=== PATIENT | male | born 1975 | race Caucasian/White ===

== ENCOUNTER 2020-08-12 10:43 | Observation (INO) | payer OTHER, SELFPAY ==
[2020-08-12] VITALS (11 sets, daily range): BP systolic 109–162; BP diastolic 69–115; PULSE 50–72; RESP 16–20; TEMP 36.3–36.5; O2SAT 96–99; BMI 31.1
--- NOTE | 2020-08-12 10:57 | ECG_ITS ---
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 Measurements Intervals [place] Rate: 57 P: 59 [place]: 173 QRS: 60 QRSD: 103 T: 53 QT: 401 QTc: 392 Interpretive Statements SINUS BRADYCARDIA No previous ECG available for comparison Electronically Signed On 08-12-2020 19:40:56 PHOTORADIO OPERATOR by Abraham Wilson M.D. [id number]
--- NOTE | 2020-08-12 10:57 | CT_ITS ---
WS: [id number] CT HEAD NONCONTRAST HISTORY: Symptoms of Acute Stroke TECHNIQUE: Contiguous axial imaging performed through the brain in 2.5 mm imaging. Bone and soft tiss ue windows. Sagittal and coronal reformats reviewed. All CT scans at [facility] use at ast one of these dose optimization techniques: automated exposure control; mA and/or kV adjustment pe r patient size (includes targeted exams where dose is matched to clinical indication); or iterative r econstruction. DLP: 878.67 mGy.cm COMPARISON: None available. No acute intracranial hemorrhage, midline shift or mass effect. No atrophy or prior infarcts or herniation. Ventricles: Normal size with no hydrocephalus. Paranasal sinuses: As visualized are clear. Mastoid air cells: Well pneumatized. Calvarium and scalp: Skull is intact with no soft tissue edema or swelling. CT/CT head wo con* [id number] IMPRESSION: Negative head CT.
--- NOTE | 2020-08-12 10:58 | ED_ITS ---
HPI - Neuro Symptoms/Deficit General: Chief Complaint: Neuro Symptoms/Deficit Stated Complaint: dizziness/slurred speech/Sent from Time Seen by Provider: 08/12/20 10:46 Source: patient Mode of arrival: ambulatory Limitations: no limitations History of Present Illness: HPI Narrative: 44-year-old male who states of the last 2 days he has had intermittent aphasia. He states he is having a really hard time finding words at times and has to really concentrate to be able to speak. He denies any other neurologic deficits. He has had no weakness. He has had mild headaches. He has no history of this in the past. Denies any fever. Associated symptoms: Deny chest pain, headache(s), nausea or vomiting Review of Systems Const: Denies: fever(s), chills, body aches or change in appetite Eyes: Denies: blurry vision or eye discomfort ENMT: Denies: throat pain or dental pain Card: Denies: chest pain Resp: Denies: dyspnea GI: Denies: abdominal pain, nausea, vomiting or diarrhea : Denies: dysuria Musc: Denies: neck pain or back pain Skin/Breast: Denies: rash Neuro: Denies: headache(s) Psych: Denies: depression Nithin/Lymph: Denies: easy bruising All/Imm: Denies: urticaria PFSH ED PFSH: Medical History Expressive aphasia Stroke-like symptoms Social History Smoking and tobacco status: current every day smoker e-cigarettes E-Cigarette Details: vaporizer device Alcohol intake: current Alcohol intake frequency: 0-2 Drinks per Day History of recent travel: No NIH stroke score NIHSS: Level Of Consciousness - 1a: 0 Level Of Consciousness Questions - 1b: Both Correct Level Of Consciousness Commands - 1c: Both Correct Best Gaze - 2: Normal Visual [place] - 3: No Visual Loss Facial Palsy - 4: Normal Motor Arm Right - 5: No Drift Motor Arm Left - 5: No Drift Motor Leg Right - 6: No Drift Motor Leg Left - 6: No Drift Limb Ataxia - 7: Absent Sensory - 8: Normal Best Language - 9: No Aphasia Dysarthia - 10: Normal Extinction And Inattention - 11: 0 Score: Total Score: 0 Physical Exam Const: COMMON NORMALS: no acute distress, patient oriented x3 and healthy appearing HENMT: COMMON NORMALS: normocephalic and atraumatic HEAD & SCALP: normocephalic and atraumatic Eye: COMMON NORMALS: Equal, round and reactive pupils present and EOMs intact bilaterally PUPIL: Yes Equal, round and reactive pupils present Neck/C-Spine: COMMON NORMALS: full ROM and supple Chest: COMMONS NORMALS: normal inspection of the chest and normal palpation of entire chest wall Resp: COMMON NORMALS: normal respiratory effort, No retractions, No use of accessory muscles and clear to auscultation bilaterally AUSCULTATION: clear to auscultation bilaterally Cardio: COMMON NORMALS: regular rate, regular rhythm and No murmurs present (Cardio) RATE: regular rate RHYTHM: regular rhythm GI: COMMON NORMALS: Normal to inspection, nondistended, normoactive bowel sounds present, Soft to palpation, non-tender and no masses PALPATION: Yes Soft to palpation Extremity: COMMON NORMALS: normal to inspection and full ROM Neuro: COMMON NORMALS: patient oriented x3, moves all extremities and no focal motor deficits Psych: COMMON NORMALS: mental status grossly normal, Normal thought process present and cooperative THOUGHT PROCESS: Normal thought process present Skin: COMMON NORMALS: no rashes or lesions noted and no wounds GENERAL SKIN EXAM: no rashes or lesions noted Course Vital Signs: Vital signs: Vital Signs Temperature 97.5 F L 08/12/20 10:50 Pulse Rate 66 08/12/20 11:52 Respiratory Rate 18 08/12/20 11:52 Blood Pressure 127/87 08/12/20 11:52 Pulse Oximetry 97 08/12/20 11:52 MDM - Neuro Symptoms/Deficit MDM Narrative: Medical decision making narrative: Patient presents here with aphasia has been going on for over a day. He is not a TPA candidate due to onset of symptoms. His CT and blood work here are normal. I did speak to the hospitalist will admit for observation. He has been stable while here. Lab Data: Labs: Lab Results 08/12/20 08/12/20 Range/Units 11:06 11:06 WBC 5.8 (4.0-10.0) 10^3/ uL RBC 4.84 (4.1-5.3) 10^6/u L Hgb 14.9 (11.7-16.6) g/dL Hct 42.6 (42.0-52.0) % MCV 88.0 (80-94) fL MCH 30.8 (28.0-34.0) pg MCHC 35.0 (30.0-36.0) g/dL RDW 11.6 L (12.1-15.1) % Plt Count 249 (130-400) 10^3/c mm MPV 9.1 (7.4-10.4) fL Neut % (Auto) 62.4 % Lymph % (Auto) 23.8 % [place] % (Auto) 9.2 % Eos % (Auto) 3.0 % Baso % (Auto) 0.9 % Neut # (Auto) 3.59 (1.8-7.7) 10^3/u L Lymph # (Auto) 1.4 (0.8-4.8) 10^3/u L [place] # (Auto) 0.5 (0.2-0.9) 10^3/u L Eos # (Auto) 0.2 (0.0-0.8) 10^3/u L Baso # (Auto) 0.1 (0.0-0.1) 10^3/u L Nucleated RBC % (a uto) 0 % Nucleated RBCs # 0.0 /100WBC Sodium 139 (136-145) mmol/L Potassium 4.1 (3.5-5.1) mmol/L Chloride 104 (98-107) mmol/L Carbon Dioxide 26 (22-29) mmol/L Anion Gap 13.1 (5-19) BUN 10 (6-20) mg/dL Creatinine 1.4 H (0.7-1.2) mg/dL GFR Calculation 55.3 L (90-130) mL/min Glucose 92 (65-115) mg/dL Calculated Osmolal ity 287 (285-295) mOsm/k g Calcium 9.4 (8.5-10.5) mg/dL Total Bilirubin 0.5 (0.15-1.2) mg/dL AST 21 (0-40) U/L ALT 24 (0-41) U/L Alkaline Phosphata se 61 (40-130) IU/L Total Protein 6.9 (6.6-8.7) g/dL Albumin 4.4 (3.5-5.2) g/dL Globulin 2.5 (1.3-4.6) g/dL Imaging Data^: CT Head: Attestation: I personally reviewed and interpreted this imaging study as follows: Radiologist's impression: [address] [place] [address] CT Scan Report Signed Patient: Howard Briseno Unit #: [id number] : 1975 Age/Sex: 44 / M ADM Date: 08/12/20 Loc: ER Room/Bed: Attending Dr: Ordering Provider/Ordering MD: Juana Tracy MD Date of Service: 08/12/20 Procedure(s): CT head wo con* [id number] Accession Number(s): [id number] Report Number: [id number] WS: [id number] CT HEAD NONCONTRAST HISTORY: Symptoms of Acute Stroke TECHNIQUE: Contiguous axial imaging performed through the brain in 2.5 mm imaging. Bone and soft tissue windows. Sagittal and coronal reformats reviewed. All CT scans at [facility] use at least one of these dose optimization techniques: automated exposure control; mA and/or kV adjustment per patient size (includes targeted exams where dose is matched to clinical indication); or iterative reconstruction. DLP: 878.67 mGy.cm COMPARISON: None available. No acute intracranial hemorrhage, midline shift or mass effect. No atrophy or prior infarcts or herniation. Ventricles: Normal size with no hydrocephalus. Paranasal sinuses: As visualized are clear. Mastoid air cells: Well pneumatized. Calvarium and scalp: Skull is intact with no soft tissue edema or swelling. CT/CT head wo con* [id number] IMPRESSION: Negative head CT. EKG Data^: EKG 1: Attestation: I personally reviewed and interpreted this EKG as follows: EKG interpretation date: 08/12/20 EKG interpretation time: 11:41 Interpretation: sinus nilesh hr [address] or t wave abnormalities qrs 103 qtc 395 Discharge Plan Discharge Patient Disposition: Admitted As Inpatient Clinical Impression: Stroke-like symptoms Condition: Stable Coding Level of Care Code ED Cryptologic Support Specialist for Chg Fwd Exam Comprehensive
[2020-08-12 11:17] LABS: Basophils # 0.1 10^3/uL (0.0-0.1); Basophils % 0.9 %; Eosinophils # 0.2 10^3/uL (0.0-0.8); Hematocrit 42.6 % (42.0-52.0); Hemoglobin 14.9 g/dL (11.7-16.6); Lymphocytes # 1.4 10^3/uL (0.8-4.8); Lymphocytes % 23.8 %; Mean Corpuscular Hemoglobin 30.8 pg (28.0-34.0); Mean Platelet Volume 9.1 fL (7.4-10.4); Monocytes # 0.5 10^3/uL (0.2-0.9); Monocytes % 9.2 %; Neutrophils # 3.59 10^3/uL (1.8-7.7); Neutrophils % 62.4 %; Nucleated Red Blood Cells % 0 %; Platelet Count 249 10^3/cmm (130-400); Red Blood Count 4.84 10^6/uL (4.1-5.3); Red Cell Distribution Width 11.6 % (12.1-15.1); White Blood Count 5.8 10^3/uL (4.0-10.0)
[2020-08-12 11:34] LABS: Alanine Aminotransferase 24 U/L (0-41); Albumin Level 4.4 g/dL (3.5-5.2); Alkaline Phosphatase 61 IU/L (40-130); Anion Gap 13.1 (5-19); Aspartate Amino Transferase 21 U/L (0-40); Blood Urea Nitrogen 10 mg/dL (6-20); Calcium 9.4 mg/dL (8.5-10.5); Carbon Dioxide 26 mmol/L (22-29); Chloride 104 mmol/L (98-107); Globulin 2.5 g/dL (1.3-4.6); Glomerular Filtration Rate 55.3 mL/min (90-130); Glucose 92 mg/dL (65-115); Osmolality Calculated 287 mOsm/kg (285-295); Potassium 4.1 mmol/L (3.5-5.1); Sodium 139 mmol/L (136-145); Total Bilirubin 0.5 mg/dL (0.15-1.2); Total Protein 6.9 g/dL (6.6-8.7)
[2020-08-12] MEDS: aspirin 81 mg Chew Tablet 324 MG PO (12:21)
[2020-08-12 12:29] LABS: INR 1.07 (0.8-1.2)
--- NOTE | 2020-08-12 12:33 | P.HP_ITS ---
Providers/Chief Complaint Admitting Physician: Caitlin Monge Primary Care Provider: TAMRA Guevara Chief Complaint: dizziness/slurred speech/Sent from History of Present Illness 44-year-old male with a past medical history of gastroesophageal reflux disease, dyslipidemia, hypertension who was seen earlier today for speech abnormality. Patient had reported difficulty with speaking and formulating sentences. Stated this has been ongoing for the past 2 days. This was associated with dizziness and headaches. He was directed to ER for evaluvation of possible stroke. Upon arrival to ER his initial NIH was noted to be 0. Laboratory workup showed a WBC of 5.8, hemoglobin of 14.9, hematocrit 42.6 and a platelet count of 249. sodium 139, potassium 4.1, chloride 104, bicarb 26, BUN 10 and creatinine of 1.4. LFTs were within normal limits. Imaging studies included CT head without contrast which did not show any evidence of acute intra-cranial abnormality. No Recent fever, chills, nausea vomiting. Patient's is at bedside and assisted with history. Stated that he has been under extreme status related to work and home situation lately. No chest pain or shortness of breath. In ER patient was started on IVF and aspirin 325 mg POx 1. Review of Systems General: Reports: 10 or more systems reviewed and unremarkable except in HPI and below Medications/Allergies Home Medications Medication Instructions Recorded Confirmed Last Taken Type atorvastatin 40 mg tablet 20 mg PO DAILY@08/12/20 08/12/20 08/11/20 History cholecalciferol (vitamin D3) 50 mcg PO DAILY@08/12/20 08/12/20 08/12/20 History [Vitamin D3] cinnamon bark [Cinnamon] 500 mg PO DAILY@08/12/20 08/12/20 08/11/20 History diphenhydramine HCl [Benadryl] 50 mg PO BEDTIME@08/12/20 08/12/20 08/11/20 History esomeprazole magnesium 20 mg 20 mg PO DAILY@08/12/20 08/12/20 08/12/20 History capsule,delayed release hydroxyzine HCl 25 mg tablet 75 mg PO Q8H PRN tab 08/12/20 08/12/20 08/12/20 Hi story ibuprofen 800 mg tablet 800 mg PO TID PRN 08/12/20 08/12/2020 History lamotrigine 150 mg tablet 150 mg PO DAILY@19 08/12/20 08/12/20 08/11/20 History lisinopril 40 mg tablet 40 mg PO DAILY@05 08/12/20 08/12/20 08/12/20 History methocarbamol 500 mg tablet 1,000 mg PO QID PRN tab 08/12/20 08/12/20 08/12/20 History metoprolol tartrate 50 mg tablet 25 mg PO Q12H 08/12/20 08/12/20 08/12/20 History valerian root 100 mg PO BEDTIME@19 08/12/20 08/12/20 08/11/20 History Allergies Allergy/AdvReac Type Severity Reaction Status Date / Time latex Allergy skin Verified 08/12/20 09:22 problems PFSH Acute PFSH: Medical History (Updated 08/12/20 @ 15:59 by Caitlin Monge MD) Anxiety Depression Elevated cholesterol Expressive aphasia Hypertension Post traumatic stress disorder (PTSD) Stroke-like symptoms Social History Smoking and tobacco status: current every day smoker e-cigarettes E-Cigarette Details: vaporizer device Alcohol intake: current Alcohol intake frequency: 0-2 Drinks per Day History of recent travel: No Vitals/I&O/Wt Last Vital Signs Temp 97.5 F L 08/12/20 10:50 Pulse 56 L 08/12/20 12:00 Resp 16 08/12/20 12:00 BP 109/87 08/12/20 12:00 Pulse Ox 98 08/12/20 12:00 Weight last 48 hrs Weight 104.326 kg Physical Exam Narrative: EXAM NARRATIVE: General : Alert, awake oriented x 3 HEENT : Grossly unremarkable CVS - NSR CHEST : non-labored respiration ABD :Soft non-tender Ext : No edema Neuro: No aphasia, CN 2-12 intact, MS 5/5, Sensation intact. Data : 08/12/20 11:06 08/12/20 11:06 A&P Assessment and plan (1) No pertinent past surgical history: Status: Acute Expressive aphasia r/o CVA - No TPA onset of symptoms > 2 days - CT head w/o contrast - > negative - S/p Asa 325 mg po x1 - Continue 81 mg PO daily - Lipitor 40 mg PO daily - Will check ECHO - Consider CTA head and neck - MRI brain w/o contrast likely in am - Check A1c, lipid panel in am - Hold anti-hypertensive allow for permissive hypertension - Neuro-checks / NIH as ordered - Cardiac telemetry - Bedside swallow prior to initiating diet - ST/PT/OT consulted - Consider Neurology consult Acute kidney injury - Creatinine 1.4 - No prior to compare - On IVF - Repeat BMP in am - Renally dose meds - Renal US if worsening Hypertension - Holding home bp meds - Permissive HTN Dyslipidemia - Lipitor 40 mg PO daily - Lipid panel in am DVT ppx - SCDs - Initial heparin after 24hr Attestations Medical Necessity Statement*: Patient is admitted to the hospital with expressive aphasia pending CVA workup anticipate less than 2 midnight stay in hospital will place in observation status. Time Spent in Patient Care: Greater than 35 minutes (>than 50% of time spent in counselling and/or direct pt care on unit) . Coding Level of Care Code Acute Dietary Services Manager for Marlin Alfonso Diagnoses No pertinent past surgical history Z78.9
--- NOTE | 2020-08-12 13:20 | PC.OT ---
OT SCREEN COMPLETED. PATIENT DEMONSTRATE WFL AROM OF B UE; MX STRENGTH 4+/5. GOOD SITTING AND STATIC STANDING BALANCE NOTED. NO VISUAL DEFICITS NOTED. NO DEFICITS IN ADL PERFORMANCE. NO FURTHER SKILLED OT REQUIRED AT THIS TIME.
--- NOTE | 2020-08-12 16:06 | CTR_ITS ---
PROCEDURE INFORMATION: Exam: CT Angiography Head With Contrast Exam date and time: 08/12/2020 8:17 PM Age: 44 years old Clinical indication: Speech disturbance and visual disturbance; Slurred speech; Additional info: Expressive aphasia TECHNIQUE: Imaging protocol: Computed tomography angiography of the head with intravenous contrast. 3D rendering (Not supervised by radiologist): MIP and/or 3D reconstructed images were created by the technologist. Radiation optimization: All CT scans at this facility use at least one of these dose optimization techniques: automated exposure control; mA and/or kV adjustment per patient size (includes targeted exams where dose is matched to clinical indication); or iterative reconstruction. Contrast material: OMNI 350; Contrast volume: 95 ml; Contrast route: INTRAVENOUS (IV); COMPARISON: CT head wo con* [id number] 08/12/2020 11:09 AM RADIATION DOSE METRICS: Total DLP (mGy-cm): 2607.06 FINDINGS: ANTERIOR CIRCULATION: Right internal carotid artery: Unremarkable. Intracranial segment is patent with no significant stenosis. No aneurysm. Right middle cerebral artery: Unremarkable. No occlusion or significant stenosis. No aneurysm. Right anterior cerebral artery: Unremarkable. No occlusion or significant stenosis. No aneurysm. Left internal carotid artery: Unremarkable. Intracranial segment is patent with no significant stenosis. No aneurysm. Left middle cerebral artery: Unremarkable. No occlusion or significant stenosis. No aneurysm. Left anterior cerebral artery: Unremarkable. No occlusion or significant stenosis. No aneurysm. POSTERIOR CIRCULATION: Right vertebral artery: Unremarkable. No occlusion or significant stenosis. No aneurysm. Left vertebral artery: Unremarkable. No occlusion or significant stenosis. No aneurysm. Basilar artery: Unremarkable. No occlusion or significant stenosis. No aneurysm. Right posterior cerebral artery: Unremarkable. No occlusion or significant stenosis. No aneurysm. Left posterior cerebral artery: Unremarkable. No occlusion or significant stenosis. No aneurysm. IMPRESSION: No significant intracranial vascular abnormality identified. PROCEDURE INFORMATION: Exam: CT Angiography Neck With Contrast Exam date and time: 08/12/2020 8:17 PM Age: 44 years old Clinical indication: Speech disturbance and visual disturbance; Slurred speech; Additional info: Expressive aphasia TECHNIQUE: Imaging protocol: Computed tomography angiography of the neck with intravenous contrast. 3D rendering (Not supervised by radiologist): MIP and/or 3D reconstructed images were created by the technologist. Radiation optimization: All CT scans at this facility use at least one of these dose optimization techniques: automated exposure control; mA and/or kV adjustment per patient size (includes targeted exams where dose is matched to clinical indication); or iterative reconstruction. Contrast material: OMNI 350; Contrast volume: 95 ml; Contrast route: INTRAVENOUS (IV); COMPARISON: CT head wo con* [id number] 08/12/2020 11:09 AM RADIATION DOSE METRICS: Total DLP (mGy-cm): 2607.06 FINDINGS: Right common carotid artery: No stenosis. No dissection or occlusion. Right internal carotid artery: No stenosis of the extracranial segment. No dissection or occlusion. Right external carotid artery: No occlusion or stenosis of the origin. Right vertebral artery: No stenosis. No dissection or occlusion. Left common carotid artery: No stenosis. No dissection or occlusion. Left internal carotid artery: No stenosis of the extracranial segment. No dissection or occlusion. Left external carotid artery: No occlusion or stenosis of the origin. Left vertebral artery: No stenosis. No dissection or occlusion. CT/CT angio headneck* [id number] IMPRESSION: No acute vascular abnormality identified in the neck. REFERENCES: NASCET CRITERIA. The degree of internal carotid artery stenosis is based on NASCET criteria. Normal is no stenosis. Mild is less than 50% stenosis. Moderate is 50-69% stenosis. Severe is 70% to 99% stenosis. Total occlusion is no detectable patent lumen. Radiation Dose CTDIVOL = (mGy): DLP = 2607.06~2607.06 (mGy-cm)
[2020-08-12 16:59] LABS: Glucose Point of Care 99 mg/dL (70-110)
[2020-08-12] MEDS: atorvastatin 40 mg Tablet PO (18:38)
[2020-08-12] MEDS: acetaminophen 500 mg Tablet PO (19:33)
[2020-08-12] MEDS: iohexol 350 mg/mL 100 mL Btl IV (20:18)
[2020-08-12 21:04] LABS: Amphetamines Screen Urine Negative (Negative); Barbiturates Screen Urine Negative (Negative); Benzodiazepines Screen Urine Negative (Negative); Cocaine Screen Urine Negative (Negative); Opiate Screen Urine Negative (Negative); PCP Screen Urine Negative (Negative); THC Screen Urine Negative (Negative)
[2020-08-13 03:00] VITALS: BP 106/69; PULSE 54; RESP 20; TEMP 36.6; O2SAT 94
[2020-08-13 05:28] LABS: Basophils % 0.6 %; Eosinophils # 0.3 10^3/uL (0.0-0.8); Eosinophils % 4.5 %; Hematocrit 43.6 % (42.0-52.0); Hemoglobin 14.9 g/dL (11.7-16.6); Lymphocytes # 1.9 10^3/uL (0.8-4.8); Lymphocytes % 30.4 %; Mean Corpuscular HGB Conc 34.2 g/dL (30.0-36.0); Mean Corpuscular Hemoglobin 30.2 pg (28.0-34.0); Mean Corpuscular Volume 88.3 fL (80-94); Mean Platelet Volume 9.2 fL (7.4-10.4); Monocytes # 0.5 10^3/uL (0.2-0.9); Monocytes % 7.3 %; Neutrophils # 3.51 10^3/uL (1.8-7.7); Neutrophils % 56.9 %; Nucleated Red Blood Cells % 0 %; Platelet Count 246 10^3/cmm (130-400); Red Blood Count 4.94 10^6/uL (4.1-5.3); Red Cell Distribution Width 11.4 % (12.1-15.1); White Blood Count 6.2 10^3/uL (4.0-10.0)
--- NOTE | 2020-08-13 05:28 | PC.NURSE ---
SHIFT SUMMARY Has rested well. No distress or c/o other than mild headache for which he received Tylenol. Neurochecks without deficits. Did have CTA done in the evening.
[2020-08-13 05:33] VITALS: PULSE 52
[2020-08-13 05:55] LABS: Alanine Aminotransferase 19 U/L (0-41); Alkaline Phosphatase 54 IU/L (40-130); Anion Gap 11.7 (5-19); Aspartate Amino Transferase 15 U/L (0-40); Blood Urea Nitrogen 10 mg/dL (6-20); Calcium 9.2 mg/dL (8.5-10.5); Carbon Dioxide 25 mmol/L (22-29); Chloride 106 mmol/L (98-107); Chol HDL Ratio 4.45 mg/dL (1.0-5.00); Cholesterol 129 mg/dL (0-200); Glomerular Filtration Rate 60.2 mL/min (90-130); Glucose 83 mg/dL (65-115); HDL Cholesterol 29 mg/dL (60-100); LDL Cholesterol Calculated 55 mg/dL (50-129); Osmolality Calculated 286 mOsm/kg (285-295); Potassium 3.7 mmol/L (3.5-5.1); Sodium 139 mmol/L (136-145); Total Bilirubin 0.6 mg/dL (0.15-1.2); Triglycerides 223 mg/dL (0-150)
--- NOTE | 2020-08-13 06:00 | USCV_ITS ---
Howard Briseno Age: 44 Gender: M : 1975 Exam Date: 08/13/2020 07:51 Ordering Phys: Caitlin Monge MD Technologist: Rosa Alas Exam Location: [facility] Indication: TIA BP: 106 / 69 HR: 55 Rhythm: Sinus Technical Quality: MEASUREMENTS (Male / Female) Normal Values 2D ECHO LV Diastolic Diameter PLAX 3.8 cm 4.2 - 5.9 / 3.9 - 5.3 cm LV Systolic Diameter PLAX 2.5 cm LV Chamber Size 3.2 cm IVS Diastolic Thickness 1.4 cm 0.6 - 1.0 / 0.6 - 0.9 cm IVS Systolic Thickness 1.8 cm LVPW Diastolic Thickness 2.0 cm 0.6 - 1.0 / 0.6 - 0.9 cm LVPW Systolic Thickness 3.6 cm RV Chamber Size 3.9 cm LVOT Diameter 2.0 cm LV Ejection Fraction 2D Teich 63.1 % LV Ejection Fraction MOD 2C 45.6 % LV Ejection Fraction 2C AL 46.2 % LA Diameter 3.1 cm LA Width 3.1 cm LA Height 5.2 cm RA Width 3.4 cm RA Height 4.0 cm Aorta at Sinotubular Diameter 3.0 cm M-MODE LV Diastolic Diameter MM 5.9 cm 4.2 - 5.9 / 3.9 - 5.3 cm LV Systolic Diameter MM 3.6 cm LV Ejection Fraction MM Teich 69.9 % IVS Diastolic Thickness MM 0.9 cm 0.6 - 1.0 / 0.6 - 0.9 cm IVS Systolic Thickness MM 1.3 cm LVPW Diastolic Thickness MM 1.7 cm 0.6 - 1.0 / 0.6 - 0.9 cm LVPW Systolic Thickness MM 1.7 cm Aortic Annulus Diameter 3.7 cm LA Ao Ratio MM 0.9 MV E Point Septal Separation 0.7 cm DOPPLER AV Peak Velocity 120.0 cm/s LVOT Peak Velocity 90.0 cm/s AV Area Cont Eq vti 2.1 cm squared AV Area Cont Eq pk 2.4 cm squared MV Area PHT 3.3 cm squared Mitral E to A Ratio 1.5 MV E' Velocity 42.0 cm/s Mitral E to MV E' Ratio 4.9 Mitral E to LV E' Lateral Ratio 4.7 Mitral E to LV E' Septal Ratio 5.3 TR Peak Velocity 216.5 cm/s TR Peak Gradient 18.7 mmHg TV Peak E Velocity 53.0 cm/s Right Atrial Pressure 3.0 mmHg Pulmonary Artery Systolic Pressu 21.7 mmHg PV Peak Velocity 68.0 cm/s RV Acceleration Time 0.1 s RV Ejection Time 0.4 s RV AcT/ET 0.3 FINDINGS Left Ventricle Normal left ventricular size and systolic function, EF 57 %. Mild left ventricular hypertrophy. No regional wall motion abnormalities. Right Ventricle The right ventricle is normal in size and function. Right Atrium The right atrium is normal in size. Left Atrium The left atrium is normal in size. Mitral Valve No gross abnormalities noted Aortic Valve No gross abnormalities noted Tricuspid Valve Trace tricuspid valve regurgitation. Pulmonic Valve No gross abnormalities noted Pericardium Normal pericardium without effusion. Aorta Normal ascending aorta dimension. CONCLUSIONS Normal left ventricular size and systolic function, EF 57 %. Mild left ventricular hypertrophy. No regional wall motion abnormalities. Trace tricuspid valve regurgitation. There is no pericardial effusion. There are no intracardiac masses. There are no prior echocardiogram studies to compare. Dr Abraham Wilson MD FAC (Electronically Signed) Final Date: 13 August 2020 20:12 S
[2020-08-13 06:01] LABS: Estmated Average Glucose 97
[2020-08-13 07:30] VITALS: BP 113/66; PULSE 62; RESP 18; TEMP 36.5; O2SAT 95
[2020-08-13] MEDS: aspirin 81 mg EC Tablet PO (08:36)
--- NOTE | 2020-08-13 08:52 | MR_ITS ---
WS: [id number] MRI BRAIN WITH AND WITHOUT CONTRAST HISTORY: Expressive aphasia COMPARISON: CT head 08/12/2020 TECHNIQUE: Multiplanar imaging performed through the brain with Prohance 17 ml's IV. No acute infarcts are seen. [place]-white matter differentiation is well preserved. No susceptibility artifacts or prior lacunar infarcts. Ventricles and extra-axial spaces are normal. Clivus and pituitary gland are normal. Visualized posterior fossa and brainstem are also normal. Postcontrast images are negative for masses or vascular malformations. Dural venous sinuses are normal. Paranasal sinuses: Small amount of fluid in the maxillary sinuses bilaterally. Mastoid air cells: Normal. Calvarium and scalp: Normal. MR/MR head wo/w con [id number] IMPRESSION: 1. Normal MRI brain with contrast. 2. Mild bilateral maxillary sinusitis.
[2020-08-13] MEDS: LORazepam 2 mg/mL INJ 1 mL 0.5 MG IVP (10:03)
[2020-08-13 11:00] VITALS: BP 120/76; PULSE 73; RESP 18; TEMP 36.6; O2SAT 94
--- NOTE | 2020-08-13 11:57 | PC.NURSE ---
off unit Pt went to [facility] for MRI.
--- NOTE | 2020-08-13 15:17 | ECG_ITS ---
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 Measurements Intervals [place] Rate: 65 P: 32 [place]: 148 QRS: 23 QRSD: 106 T: 29 QT: 381 QTc: 399 Interpretive Statements SINUS RHYTHM Compared to ECG 08/12/2020 11:41:19 Sinus bradycardia no longer present Electronically Signed On 08-13-2020 21:21:01 INFORMATION TECHNOLOGY TEACHER by Lisa Call M.D. [id number]
--- NOTE | 2020-08-13 15:17 | PM.DCS ---
Discharge Providers Date of Admission: 08/12/20 12:02 Date of Discharge: August 13, 2020 Attending Provider at Admission: Caitlin Monge Attending Provider at Discharge: Caitlin Monge Primary Care Provider: TAMRA Guevara Diagnoses at Discharge Discharge Diagnosis (1) No pertinent past surgical history: Status: Resolved Reason for Visit Reason for Visit: dizziness/slurred speech/Sent from [facility] Course Hospital Course 44-year-old male with a past medical history of gastroesophageal reflux disease, dyslipidemia, hypertension who was seen earlier today for speech abnormality. Patient had reported difficulty with speaking and formulating sentences. Stated this has been ongoing for the past 2 days. This was associated with dizziness and headaches. He was directed to ER for evaluvation of possible stroke. Upon arrival to ER his initial NIH was noted to be 0. Laboratory workup showed a WBC of 5.8, hemoglobin of 14.9, hematocrit 42.6 and a platelet count of 249. sodium 139, potassium 4.1, chloride 104, bicarb 26, BUN 10 and creatinine of 1.4. LFTs were within normal limits. Imaging studies included CT head without contrast which did not show any evidence of acute intra-cranial abnormality. No Recent fever, chills, nausea vomiting. Patient's is at bedside and assisted with history. Stated that he has been under extreme status related to work and home situation lately. No chest pain or shortness of breath.In ER patient was started on IVF and aspirin 325 mg POx 1 And admitted for stroke workup. Upon admission a CT angio of head and neck was performed which did not show any flow-limiting stenosis. Further had a MRI brain with without contrast which was also negative. Echocardiogram was performed which showed an ejection fraction of 57% without any significant valvular or structural heart disease. It was suspected that the patient likely had the symptoms due to over use of hydroxyzine and Benadryl. He was advised to hold these medications at the time of discharge. Also consult him on returning hospital if any worsening or recurrence of symptoms. Advised to follow-up with primary care physician shortly after discharge. Addition was counseled on stress management. Physical Exam Narrative: EXAM NARRATIVE: General : Alert, awake oriented x 3 HEENT : Grossly unremarkable CVS - NSR CHEST : non-labored respiration ABD :Soft non-tender Ext : No edema Neuro: No aphasia, CN 2-12 intact, MS 5/5, Sensation intact. Discharge Data Data Completed and Pending: Completed Studies During Hospitalization Category Date Time Status CT angio headneck * 13591/71849 Rout ine Cat Scan 08/12/20 16:[address] head wo con* 7 0450 Stat Cat Scan 08/12/20 10:57 Completed MR head wo/w con [id number] Routine MRI 08/13/20 08:52 Completed Pending at discharge Category Date Time Status CV echo complete* [id number] Routine Ultrasound 08/13/20 06:00 Taken Labs from last 24 hours 08/13/20 08/13/20 08/13/20 04:48 04:48 04:48 WBC 6.2 RBC 4.94 Hgb 14.9 Hct 43.6 MCV 88.3 MCH 30.2 MCHC 34.2 RDW 11.4 L Plt Count 246 MPV 9.2 Neut % (Auto) 56.9 Lymph % (Auto) 30.4 [place] % (Auto) 7.3 Eos % (Auto) 4.5 Baso % (Auto) 0.6 Neut # (Auto) 3.51 Lymph # (Auto) 1.9 [place] # (Auto) 0.5 Eos # (Auto) 0.3 Baso # (Auto) 0.0 Nucleated RBC % (a uto) 0 Nucleated RBCs # 0.0 Sodium 139 Potassium 3.7 Chloride 106 Carbon Dioxide 25 Anion Gap 11.7 BUN 10 Creatinine 1.3 H GFR Calculation 60.2 L Glucose 83 POC Glucose Estimat Average Gl ucose Hemoglobin A1c Calculated Osmolal ity 286 Calcium 9.2 Total Bilirubin 0.6 AST 15 ALT 19 Alkaline Phosphata se 54 Total Protein 6.0 L Albumin 4.0 Globulin 2.0 Triglycerides 223 H Cholesterol 129 LDL Cholesterol, C alc 55 HDL Cholesterol 29 L LDL/HDL Ratio 1.90 Cholesterol/HDL Ra noman 4.45 Urine Opiates Scre en Ur Barbiturates Sc reen Ur Phencyclidine S crn Ur Amphetamines Sc reen U Benzodiazepines Scrn Urine Cocaine Scre en U Marijuana (THC) Screen 08/13/20 08/12/20 08/12/20 04:48 20:25 16:56 WBC RBC Hgb Hct MCV MCH MCHC RDW Plt Count MPV Neut % (Auto) Lymph % (Auto) [place] % (Auto) Eos % (Auto) Baso % (Auto) Neut # (Auto) Lymph # (Auto) [place] # (Auto) Eos # (Auto) Baso # (Auto) Nucleated RBC % (a uto) Nucleated RBCs # Sodium Potassium Chloride Carbon Dioxide Anion Gap BUN Creatinine GFR Calculation Glucose POC Glucose 99 Estimat Average Gl ucose 97 Hemoglobin A1c 5.0 Calculated Osmolal ity Calcium Total Bilirubin AST ALT Alkaline Phosphata se Total Protein Albumin Globulin Triglycerides Cholesterol LDL Cholesterol, C alc HDL Cholesterol LDL/HDL Ratio Cholesterol/HDL Ra noman Urine Opiates Scre en Negative Ur Barbiturates Sc reen Negative Ur Phencyclidine S crn Negative Ur Amphetamines Sc reen Negative U Benzodiazepines Scrn Negative Urine Cocaine Scre en Negative U Marijuana (THC) Screen Negative Vitals: Last Vital Signs Temp 97.9 F 08/13/20 11:00 Pulse 73 08/13/20 11:00 Resp 18 08/13/20 11:00 BP 120/76 08/13/20 11:00 Pulse Ox 94 08/13/20 11:00 Discharge Plan Discharge Patient Disposition: Home Condition: Stable Prescriptions: Continued lisinopril 40 mg tablet 40 mg PO DAILY@05 RF: 0 metoprolol tartrate 50 mg tablet 25 mg PO Q12H RF: 0 lamotrigine 150 mg tablet 150 mg PO DAILY@19 RF: 0 esomeprazole magnesium 20 mg capsule,delayed release(DR/EC) 20 mg PO DAILY@05 RF: 0 atorvastatin 40 mg tablet 20 mg PO DAILY@19 RF: 0 methocarbamol 500 mg tablet 1,000 mg PO QID PRN (Reason: Pain) RF: 0 valerian root 100 mg Capsule 100 mg PO BEDTIME@19 RF: 0 Cinnamon 500 mg Capsule 500 mg PO DAILY@19 RF: 0 Vitamin D3 50 mcg (2,000 unit) Capsule 50 mcg PO DAILY@05 RF: 0 Discontinued hydroxyzine HCl 25 mg tablet 75 mg PO Q8H PRN (Reason: Anxiety) RF: 0 ibuprofen 800 mg tablet 800 mg PO TID PRN (Reason: Pain) RF: 0 diphenhydramine HCl [Benadryl] 50 mg Capsule 50 mg PO BEDTIME@19 RF: 0 Discharge Orders: Discharge Order (Routine); Ordered 08/13/20 Ordered By: Caitlin Monge Referrals: Magdalene García MD [Physician] - 08/19/20 12:30 pm Franky Mcghee PA [Primary Care Provider] - 4-7 days (Chacorta Mcghee is available for walk in appointments 7 days a week 9-1230 and 2-5 at [facility]) Discharge Diet: Cardiac Discharge Activity: Resume usual activity Patient Instructions: Ischemic Stroke (DC), Self Care Measures After a Stroke (DC), Stroke Stoplight Activity Restrictions/Additional Instructions: Avoid sedative, Discontinue hydroxyzine and benadryl for sleep. Consider melatonin OTC. Return to hospital if any recurrance or worsening symptoms. Discharge Attestations Time Spent in Discharge Care*: greater than 30 min Specific Discharge Activities: educating patient, educating and/or supporting family/caregiver, discussing with machine adjuster leader case trim/social workers/dc planners, documenting/other paperwork and evaluating patient/reviewing data Status at Discharge: Cognitive status at discharge: cognitively intact, Behavioral status at discharge: cooperative, Functional status at discharge: independent ambulation Overall status at discharge: patient is back to baseline Quality Metrics Clinical Quality Measures During this hospital stay, did patient experience: None Coding Level of Care Code Acute Cartography Supervisor for Chg Fwd Diagnoses No pertinent past surgical history Z78.9
[2020-08-13 15:39] VITALS: BP 127/83; PULSE 70; RESP 18; TEMP 37; O2SAT 96
[2020-08-13 19:30] VITALS: BP 127/83; PULSE 70; RESP 18; TEMP 37; O2SAT 96
--- NOTE | 2020-08-14 13:25 | PC.RESP ---
Smoking Cessation information sent to patient.
== END 2020-08-13 17:11 | disposition home or self-care (01) ==
LOC: ER 12:03 → MEDSURG 12:31
PROVIDERS: Admitting Provider Hospitalist; Emergency Provider Emergency Medicine; PCP Emergency Medicine; Visit Provider Hospitalist
DX: R47.9 Unspecified speech disturbances (principal); R51.9 Headache, unspecified; R42 Dizziness and giddiness; K21.9 Gastro-esophageal reflux disease without esophagitis; E78.5 Hyperlipidemia, unspecified; I10 Essential (primary) hypertension; F41.9 Anxiety disorder, unspecified; F32.9 Major depressive disorder, single episode, unspecified; F17.290 Nicotine dependence, other tobacco product, uncomplicated; N17.9 Acute kidney failure, unspecified
CPT/HCPCS: 12345; 36415; 36416; 70450; 70496; 70498; 70553; 80053; 80061; 80306; 82962; 83036; 85025; 85610; 92507; 92523; 92526; 92610; 93005; 93306; 96374; 96375; 97161; 99282; 99285; A9579; G0378; J2060; Q9967

== ENCOUNTER → 2020-09-07 09:51 | Outpatient (BNVA) | payer OTHER, SELFPAY | PROVIDERS: PCP Emergency Medicine; Visit Provider Family Medicine | DX: I10 Essential (primary) hypertension (principal); K21.9 Gastro-esophageal reflux disease without esophagitis; F41.9 Anxiety disorder, unspecified; N17.9 Acute kidney failure, unspecified; F33.0 Major depressive disorder, recurrent, mild; M54.5 Low back pain; G89.29 Other chronic pain | CPT/HCPCS: 80048 ==

== ENCOUNTER → 2020-09-17 08:05 | Outpatient (BNVA) | payer OTHER, SELFPAY | PROVIDERS: PCP Family Medicine; Visit Provider Counselor Professional | DX: F43.12 Post-traumatic stress disorder, chronic (principal); F41.1 Generalized anxiety disorder | CPT/HCPCS: 90834 ==

== ENCOUNTER → 2020-09-25 09:04 | Outpatient (BNVA) | payer OTHER, SELFPAY | PROVIDERS: PCP Family Medicine; Visit Provider Counselor Professional | DX: F43.12 Post-traumatic stress disorder, chronic (principal); F41.1 Generalized anxiety disorder | CPT/HCPCS: 90832 ==

== ENCOUNTER → 2020-10-13 15:08 | Outpatient (BNVA) | payer OTHER, SELFPAY | PROVIDERS: PCP Family Medicine; Visit Provider Counselor Professional | DX: F43.12 Post-traumatic stress disorder, chronic (principal); F41.1 Generalized anxiety disorder | CPT/HCPCS: 90832 ==

== ENCOUNTER → 2020-11-11 08:09 | Outpatient (BNVA) | payer OTHER, SELFPAY | PROVIDERS: PCP Family Medicine; Visit Provider Counselor Professional | DX: F43.12 Post-traumatic stress disorder, chronic (principal); F41.1 Generalized anxiety disorder | CPT/HCPCS: 90834 ==

== ENCOUNTER → 2020-11-25 09:11 | Outpatient (BNVA) | payer OTHER, SELFPAY | PROVIDERS: PCP Family Medicine; Visit Provider Family Medicine | DX: I10 Essential (primary) hypertension (principal); K21.9 Gastro-esophageal reflux disease without esophagitis; M25.50 Pain in unspecified joint; N17.9 Acute kidney failure, unspecified | CPT/HCPCS: 80053; 80061; 85651; 86038; 86140 ==

== ENCOUNTER → 2020-12-09 08:10 | Outpatient (BNVA) | payer OTHER, SELFPAY | PROVIDERS: PCP Family Medicine; Visit Provider Counselor Professional | DX: F43.12 Post-traumatic stress disorder, chronic (principal); F41.1 Generalized anxiety disorder | CPT/HCPCS: 90834 ==

== ENCOUNTER → 2021-01-06 08:05 | Outpatient (BNVA) | payer OTHER, SELFPAY | PROVIDERS: PCP Family Medicine; Visit Provider Counselor Professional | DX: F43.12 Post-traumatic stress disorder, chronic (principal); F41.1 Generalized anxiety disorder | CPT/HCPCS: 90834 ==

== ENCOUNTER 2021-01-20 10:29 | Outpatient (CLI) | payer OTHER, SELFPAY ==
--- NOTE | 2021-01-20 10:44 | XR_ITS ---
WS: [id number] Thoracic spine, 3 views, 01/20/2021 Clinical Data: Z79.899 - Other residential (current) drug therapy Comparison: None. Findings: No compression fractures are seen. The disc heights are normal. The paravertebral regions are unremarkable. XR/XR thoracic spine 3V* [id number] Impression: Negative thoracic spine.
--- NOTE | 2021-01-20 10:44 | XR_ITS ---
WS: [id number] Left knee, 3 views, 01/20/2021 Clinical Data: Z79.899 - Other custodial (current) drug therapy Comparison: None. Findings: No fractures or dislocations are seen. The joint spaces are normal. The patella is intact. The soft t issues are unremarkable. XR/XR knee LT 3V* 18836 Impression: Negative left knee. Kellgren-Sebas Classification: grade 0 (none): definite absence of x-ray sierra nges of osteoarthritis
--- NOTE | 2021-01-20 10:44 | XR_ITS ---
WS: [id number] Right hand, 3 views, 01/20/2021 Clinical Data: Z79.899 - Other long-term (current) drug therapy Comparison: None. Findings: No fractures or dislocations are seen. The soft tissues are unremarkable. The joint space s are normal No periarticular demineralization or calcifications are seen. XR/XR hand RT min 3V* [id number] Impression: Negative right hand.
--- NOTE | 2021-01-20 10:44 | XR_ITS ---
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 Findings: No compression fractures or subluxation is seen. There is degenerative disc narrowing at L5-S1. Minim al anterior osteoarthritic spurring is seen at L1-L5. The transverse processes and SI joints are norm al. XR/XR lumbar spine 2-3V* 49091 Impression: 1. Degenerative disc narrowing at L5-S1. 2. Mild osteoarthritis of vertebral bodies L1-L5.
--- NOTE | 2021-01-20 10:44 | XR_ITS ---
WS: [id number] Pelvis, AP view, 01/20/2021 Clinical Data: Z79.899 - Other [facility] (current) drug therapy Comparison: None. Findings: No fractures or dislocations are seen. The SI joints and pubic symphysis are intact. The soft tissues are not remarkable. The hips are normal. XR/XR pelvis 1-2V* 50961 Impression: Negative AP pelvis.
--- NOTE | 2021-01-20 10:44 | XR_ITS ---
WS: [id number] Right knee, 3 views, 01/20/2021 Clinical Data: Z79.899 - Other [facility] (current[facility] drug therapy Comparison: None. Findings: No fractures or dislocations are seen. The joint spaces are normal. The patella is intact. The soft t issues are unremarkable. XR/XR knee RT 3V* 93596 Impression: Negative right knee. Kellgren-Sebas Classification: grade 0 (none): definite absence of x-ray sierra nges of osteoarthritis
--- NOTE | 2021-01-20 10:44 | XR_ITS ---
WS: [id number] Left hand, 3 views, 01/20/2021 Clinical Data: Z79.899 - Other correction (current) drug therapy Comparison: None. Findings: No fractures or dislocations are seen. The soft tissues are unremarkable. The joint spaces are normal No periarticular demineralization or calcifications are seen. XR/XR hand LT min 3V* 26613 Impression: Negative left hand.
[2021-01-20 12:37] LABS: Erythrocyte Sedimentation Rate 10 mm/hr (0-10)
[2021-01-20 12:42] LABS: 25 Hydroxy Vitamin D 52 ng/mL (30-100)
[2021-01-20 13:12] LABS: Rheumatoid Factor < 10.0 IU/mL (0-14)
[2021-01-20 14:42] LABS: Hepatitis B Core AB, Total Non-Reactive (Nonreactive); Hepatitis B Surface Antigen Non-Reactive (Nonreactive); Hepatitis C Virus Antibody Non-Reactive (Nonreactive)
[2021-01-21 12:13] LABS: Cyclic Citrullinated Peptide <16 UNITS
[2021-01-21 14:23] LABS: Anti-Nuclear Antibody Screen NEGATIVE (NEGATIVE)
[2021-01-23 13:28] LABS: Quantiferon Mitogen 8.72 IU/mL; Quantiferon Nil 0.01 IU/mL; Quantiferon TB Gold NEGATIVE (NEGATIVE)
[2021-01-25 22:58] LABS: HLA-B27 NEGATIVE (NEGATIVE)
== END 2021-01-20 10:30 | disposition home or self-care (01) ==
PROVIDERS: PCP Family Medicine; Visit Provider Internal Medicine Rheumatology
DX: M19.90 Unspecified osteoarthritis, unspecified site (principal); M45.9 Ankylosing spondylitis of unspecified sites in spine; Z79.899 Other long term (current) drug therapy; Z11.59 Encounter for screening for other viral diseases; Z11.1 Encounter for screening for respiratory tuberculosis; F17.290 Nicotine dependence, other tobacco product, uncomplicated
CPT/HCPCS: 36415; 72072; 72100; 72170; 73130; 73562; 82306; 85651; 86038; 86140; 86431; 86480; 86704; 86803; 86812; 87340; 99204

== ENCOUNTER → 2021-02-12 10:41 | Outpatient (BNVA) | payer OTHER, SELFPAY | PROVIDERS: PCP Family Medicine; Visit Provider Nurse Practitioner Family | DX: R68.89 Other general symptoms and signs (principal) | CPT/HCPCS: 87400 ==

== ENCOUNTER → 2021-02-23 13:02 | Outpatient (BNVA) | payer OTHER, SELFPAY | PROVIDERS: PCP Family Medicine; Visit Provider Internal Medicine Rheumatology | DX: M25.50 Pain in unspecified joint (principal); M25.569 Pain in unspecified knee; M54.5 Low back pain; G89.29 Other chronic pain; F17.290 Nicotine dependence, other tobacco product, uncomplicated | CPT/HCPCS: 99214 ==

== ENCOUNTER → 2021-03-18 08:56 | Outpatient (BNVA) | payer OTHER, SELFPAY | PROVIDERS: PCP Family Medicine; Visit Provider Counselor Professional | DX: F43.12 Post-traumatic stress disorder, chronic (principal); F41.1 Generalized anxiety disorder | CPT/HCPCS: 90834 ==

== ENCOUNTER → 2021-04-20 08:50 | Outpatient (BNVA) | payer OTHER, SELFPAY | PROVIDERS: PCP Family Medicine; Visit Provider Counselor Professional | DX: F43.12 Post-traumatic stress disorder, chronic (principal); F41.1 Generalized anxiety disorder | CPT/HCPCS: 90834 ==

== ENCOUNTER → 2021-05-13 08:59 | Outpatient (BNVA) | payer OTHER, SELFPAY | PROVIDERS: PCP Family Medicine; Visit Provider Family Medicine | DX: K21.9 Gastro-esophageal reflux disease without esophagitis (principal); R10.33 Periumbilical pain; K29.00 Acute gastritis without bleeding | CPT/HCPCS: 80053; 80061; 83690; 85025 ==

== ENCOUNTER → 2021-05-23 18:00 | Outpatient (BNVA) | payer OTHER, SELFPAY | PROVIDERS: PCP Family Medicine; Visit Provider Nurse Practitioner Family | DX: K85.90 Acute pancreatitis without necrosis or infection, unspecified (principal) | CPT/HCPCS: 80048; 82150; 83690 ==

== ENCOUNTER → 2021-06-30 08:47 | Outpatient (BNVA) | payer OTHER, SELFPAY | PROVIDERS: PCP Family Medicine; Referring Provider Internal Medicine; Visit Provider Internal Medicine | DX: Z01.812 Encounter for preprocedural laboratory examination (principal); Z20.822 Contact with and (suspected) exposure to COVID-19 | CPT/HCPCS: 87635 ==

== ENCOUNTER 2021-07-05 07:34 | Day surgery (SDC) | payer OTHER, SELFPAY ==
--- NOTE | 2021-07-05 07:41 | ANES.PREANE2 ---
Pre-Anesthetic Assessment Pre-Anesthetic Assessment: Height/Weight: Height 1.83 m Preop Diagnosis: pancreatitis Proposed Procedure: Operation Date: 07/05/21 09:15 Proposed Procedures p EGD 09640 r10.84(Not Applicable) - Siddharth Fish MD Familial anesthetic complications: None Was Beta Blanco taken within 24 hours: Yes Was Clonidine taken within 24 hours: N/A Last intake: > 8 hrs Social: Social History: No alcohol and No tobacco Comment: Vapes Exam: Pre-Anes Outpt Exam: alert, oriented x 3, clear to auscultation bilaterally and regular rate & rhythm Airway: MP: 1 Dentition: Full Pulmonary: Pulmonary: Asthma CV/HEM: CV/HEM: HTN GI: GI: GERD Musc/skel: Comments: inflammatory arthritis on prednisone Anesthetic Plan: ASA status: 3 Anesthesia: MAC Risk of > 500 ml blood loss (7ml/kg in children): No PFSH Anesthesia PFSH: Medical History Anxiety Chronic steroid use Depression Elevated cholesterol Expressive aphasia GERD (gastroesophageal reflux disease) High risk medication use Hypertension Immunization counseling Inflammatory arthritis Joint pain MDD (major depressive disorder) Muscle pain Post traumatic stress disorder (PTSD) Problems related to lack of adequate sleep Psychiatric care PTSD (post-traumatic stress disorder) Stroke-like symptoms Surgical History H/O hand surgery H/O knee surgery Family History Other CAD (coronary artery disease) Cancer Chronic kidney disease (CKD) Diabetes Hypertension Rheumatoid arthritis Stroke Denies family history of Lupus Hyperlipidemia Lung disease Social History Smoking and tobacco status: former smoker Quit status (tobacco): has quit using tobacco Year quit tobacco: 07/2020 Second hand smoke exposure: Yes Alcohol intake: current Alcohol intake frequency: 0-2 Drinks per Day History of recent travel: No Current gender identity: Male Data Anesthesia Cardiac Studies: No Data to Display
--- NOTE | 2021-07-05 07:55 | P.HP_ITS ---
Same Day Surgery H&P Indication for Procedure/HPI DATE OF PROCEDURE: July 05, 2021 CHIEF COMPLAINT/INDICATIONFOR SURGICAL PROCEDURE: Epigastric pain PREOP DIAGNOSIS: Epigastric pain. PLANNED PROCEDRUE: Operation Date: 07/05/21 09:15 Proposed Procedures p EGD 72169 r10.84(Not Applicable) - Siddharth Fish MD Medications/Allergies* Home Medications Medication Instructions Recorded Confirmed Type cholecalciferol (vitamin D3) 50 mcg PO DAILY@05 08/12/20 07/02/21 History [Vitamin D3] methocarbamol 500 mg tablet 1,000 mg PO QID PRN tab 08/12/20 07/02/21 History Allergies/Adverse Reactions Allergy/AdvReac Type Severity Reaction Status Date / Time latex Allergy skin Verified 06/16/21 08:59 problems Pertinent History/Comorbid Conditions* Medical History (Updated 06/16/21 @ 09:37 by Siddharth Fish MD) Anxiety Chronic steroid use Depression Elevated cholesterol Expressive aphasia GERD (gastroesophageal reflux disease) High risk medication use Hypertension Immunization counseling Inflammatory arthritis Joint pain MDD (major depressive disorder) Muscle pain Post traumatic stress disorder (PTSD) Problems related to lack of adequate sleep Psychiatric care PTSD (post-traumatic stress disorder) Stroke-like symptoms Surgical History (Updated 08/18/20 @ 00:00 by ) H/O hand surgery H/O knee surgery Family History (Updated 01/20/21 @ 09:22 by Emerald Wilson LPN) Rheumatoid arthritis Diabetes CAD (coronary artery disease) Chronic kidney disease (CKD) Cancer Hypertension Stroke Denies family history of Lupus Hyperlipidemia Lung disease Social History Smoking and tobacco status: former smoker Quit status (tobacco): has quit using tobacco Year quit tobacco: 07/2020 Second hand smoke exposure: Yes Alcohol intake: current Alcohol intake frequency: 0-2 Drinks per Day History of recent travel: No Current gender identity: Male Pertinent Exam Findings alert, oriented x 3, clear to auscultation bilaterally, regular rate & rhythm, operative site marked and procedure specific exam findings Recommendations Surgery/Procedure today Coding Level of Care Code Acute 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
[2021-07-05 08:20] VITALS: BP 121/81; PULSE 55; RESP 18; TEMP 36.3; O2SAT 97
[2021-07-05 08:22] VITALS: BMI 29.8
[2021-07-05] MEDS: sodium chloride 0.9% 1,000 ML 30 ML IV (08:29)
[2021-07-05 09:10] VITALS: BP 108/90; PULSE 78; RESP 16; TEMP 36.5; O2SAT 96
[2021-07-05 09:26] VITALS: BP 102/62; PULSE 64; RESP 16; O2SAT 98
--- NOTE | 2021-07-05 09:41 | PC.NURSE ---
Pt given d/c instructions with referral/consult appointment to Dr. Mcghee. Dr. Mcghee's office contacted and appointment made. Report and H&P faxed to [facility], as requested.
--- NOTE | 2021-07-05 18:52 | ANE.PACU2 ---
Inpatient post-anesthesia follow up: Airway intact: Yes Vital signs: Temperature 97.7 F Pulse Rate 64 Respiratory Rate 16 Blood Pressure 102/62 Pulse Oximetry 98 Oxygen Delivery Me thod Room Air Oxygen Flow Rate Fraction of Inspir ed Oxygen Hydration adequate: Yes Nausea and vomiting: No Pain level: 1 Mental status: Baseline
== END 2021-07-05 09:50 | disposition home or self-care (01) ==
PROVIDERS: PCP Family Medicine; Visit Provider Internal Medicine
PROC: 0DJ08ZZ Inspection of Upper Intestinal Tract, Via Natural or Artificial Opening Endoscopic (ICD-10-PCS; CPT 43235; principal; 2021-07-05 09:15)
DX: R10.13 Epigastric pain (principal); K21.9 Gastro-esophageal reflux disease without esophagitis; I10 Essential (primary) hypertension; F43.10 Post-traumatic stress disorder, unspecified; Z87.891 Personal history of nicotine dependence; Z91.040 Latex allergy status; Z79.899 Other long term (current) drug therapy
CPT/HCPCS: 43235; 96360; J2704; J7030

== ENCOUNTER → 2021-07-13 10:00 | Outpatient (BNVA) | payer OTHER, SELFPAY | PROVIDERS: PCP Family Medicine; Visit Provider Surgery | DX: Z20.822 Contact with and (suspected) exposure to COVID-19 (principal); K82.9 Disease of gallbladder, unspecified; R10.11 Right upper quadrant pain | CPT/HCPCS: 87635 ==

== ENCOUNTER 2021-07-15 09:54 | Day surgery (SDC) | payer OTHER, SELFPAY ==
[2021-07-14 10:07] VITALS: BMI 29.1
[2021-07-15] VITALS (10 sets, daily range): BP systolic 106–137; BP diastolic 67–92; PULSE 63–91; RESP 16–25; TEMP 36.4–37.1; O2SAT 94–99
[2021-07-15] MEDS: sodium chloride 0.9% 1,000 ML 30 ML IV (10:22)
--- NOTE | 2021-07-15 10:46 | W.PM.OPSUD ---
Surgery/Procedure H&P Update DATE OF PROCEDURE: July 15, 2021 DATE H&P PERFORMED: 07/13/21 H&P UPDATE INFORMATION: I have reviewed H&P completed within last 30 days, I have examined patient prior to procedure and No changes to prior documentation PREOP DIAGNOSIS: chronic cholecystitis PLANNED PROCEDURE: Operation Date: 07/15/21 11:30 Proposed Procedures p Laparoscopic Cholecystectomy 34814 K82.9(Not Applicable) - Ariel Mcghee MD
--- NOTE | 2021-07-15 11:47 | ANES.PREANE2 ---
Pre-Anesthetic Assessment Pre-Anesthetic Assessment: Height/Weight: Height 1.83 m Weight 97.522 kg Temp Pulse Resp BP Pulse Ox 98.7 F 70 18 125/87 96 07/15/21 10:10 07/15/21 10:10 07/15/21 10:10 07/15/21 10:10 07/15/21 10:10 Preop Diagnosis: chronic cholecystitis Proposed Procedure: Operation Date: 07/15/21 11:30 Proposed Procedures p Laparoscopic Cholecystectomy 81960 K82.9(Not Applicable) - Ariel Mcghee MD Was Beta Blanco taken within 24 hours: Yes Was Clonidine taken within 24 hours: N/A Last intake: Intake Last Liquid Date 07/14/21 Last Liquid Time 18:00 Last Solid Date 07/14/21 Last Solid Time 18:00 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 Exam: Pre-Anes Outpt Exam: alert, oriented x 3, clear to auscultation bilaterally and regular rate & rhythm Airway: Submandibular: WNL Cervical ROM: WNL MP: 2 History/ROS: No significant complaints GI: GI: GERD Neuropsych: Neuropsych: Anxiety and Depression Anesthetic Plan: ASA status: 2 Anesthesia: Anesthesia Evaluation and General Risk of > 500 ml blood loss (7ml/kg in children): No Meds/Allergies Current Medications: Current Medications Generic Name Dose Route Start Last Admin Trade Name Freq PRN Reason Stop Dose Admin Sodium Chloride 1,000 mls @ 30 ml s/hr 07/15/21 10:00 07/15/21 10:22 Sodium Chloride 0.9% IV 07/16/21 09:59 30 mls/hr .Q24H DIYA Administration PFSH Anesthesia PFSH: Medical History Anxiety Chronic steroid use Depression Elevated cholesterol Expressive aphasia GERD (gastroesophageal reflux disease) High risk medication use Hypertension Immunization counseling Inflammatory arthritis Joint pain MDD (major depressive disorder) Muscle pain Post traumatic stress disorder (PTSD) Problems related to lack of adequate sleep Psychiatric care PTSD (post-traumatic stress disorder) Stroke-like symptoms Surgical History (Updated 07/13/21 @ 09:47 by Ariel Mcghee MD) H/O esophagogastroduodenoscopy H/O hand surgery H/O knee surgery Family History Other CAD (coronary artery disease) Cancer Chronic kidney disease (CKD) Diabetes Hypertension Rheumatoid arthritis Stroke Denies family history of Lupus Hyperlipidemia Lung disease Social History Quit status (tobacco): has quit using tobacco Year quit tobacco: 07/2020 Second hand smoke exposure: Yes Alcohol intake: current Alcohol intake frequency: 0-2 Drinks per Day History of recent travel: No Current gender identity: Male Data Anesthesia Cardiac Studies: No Data to Display
[2021-07-15] MEDS: fentaNYL 50 mcg/mL INJ 2mL IVP ×2 (13:07→13:17)
--- NOTE | 2021-07-15 13:23 | SUR.PHASEI ---
PT AWAKES EASILY GOOD RESP EFFORT NOTED PT VSS ABD SOFT WITH 4 SITES D/I BILAT SCDS ON
--- NOTE | 2021-07-15 13:46 | PM.OP ---
Operative Report Date of procedure: July 15, 2021 Pre-op Diagnosis: chronic cholecystitis Post-op diagnosis: same Procedure Done: Laparoscopic cholecystectomy Specimens removed/disposition: Gallbladder Surgeon: Ariel Mcghee Anesthesia: General Condition: stable Disposition: PACU Procedure: The patient was taken to the operating room and was intubated under general anesthesia. After the antibiotic had been administered, the abdomen was prepped and draped in a sterile manner. Using a #15 blade, a 1 centimeter infraumbilical curvilinear incision was made and using an open Raissa technique the peritoneal cavity was entered. A 10 millimeter port was placed and 15 millimeters of pneumoperitoneum was created. A 10 millimeter, 30 degrees scope was then introduced. Three 5 millimeter ports were placed in the epigastric, midclavicular and the anterior axillary line two fingerbreadths below the costal margin on the right side under the direct visualization. Ratcheted forceps were introduced into the lateral most port and was used to retract the fundus of the gallbladder cephalad and using forceps the infundibulum of the gallbladder was retracted laterally. Using L-hook cautery the peritoneum overlying the Calot's triangle was opened medially and laterally until the cystic duct and the cystic artery were skeletonized. Dissection was carried along the body of the gallbladder and after ensuring critical view of safety, 4 clips applied on the cystic duct and 3 clips applied on the cystic artery and cut leaving, 3 clips on the remaining portion of the duct and 2 clips on the remaining portion of the artery. The rest of the gallbladder was dissected off the liver using L-hook cautery. There was no bleeding or bile leaking noted from the gallbladder fossa and the clips appeared to be in place. An EndoCatch bag was introduced to remove the gallbladder. All the ports were removed under direct visualization and there was no bleeding noted from the port sites. The fascia of the umbilicus was closed using [id number] 0 Vicryl sutures and the subcutaneous tissue was approximated using 3-0 Vicryl sutures. The skin at all four ports were closed using 4-0 Monocryl and Dermabond. A total of 10 millimeters of 0.5% Marcaine was infiltrated around the port sites. The patient was stable throughout the procedure.
[2021-07-15] MEDS: HYDROcodone-acetaminophen 5-325 mg Tablet 1 TAB PO (13:53)
--- NOTE | 2021-07-15 15:32 | ANE.PACU2 ---
Inpatient post-anesthesia follow up: Airway intact: Yes Vital signs: Temperature 97.8 F Pulse Rate 76 Respiratory Rate 18 Blood Pressure 106/71 Pulse Oximetry 94 Oxygen Delivery Me thod Room Air Oxygen Flow Rate 8 Fraction of Inspir ed Oxygen Hydration adequate: Yes Nausea and vomiting: No Pain level: 3 Mental status: Baseline
== END 2021-07-15 14:34 | disposition home or self-care (01) ==
PROVIDERS: PCP Family Medicine; Visit Provider Surgery
PROC: 0FT44ZZ Resection of Gallbladder, Percutaneous Endoscopic Approach (ICD-10-PCS; CPT 47562; principal; 2021-07-15 11:30)
DX: R10.11 Right upper quadrant pain (principal); K82.9 Disease of gallbladder, unspecified; K21.9 Gastro-esophageal reflux disease without esophagitis; I10 Essential (primary) hypertension; Z87.891 Personal history of nicotine dependence
CPT/HCPCS: 47562; 88304; J0690; J1100; J2250; J2405; J2710; J3010; J3490; J7030

== ENCOUNTER → 2021-08-23 14:52 | Outpatient (BNVA) | payer OTHER, SELFPAY | PROVIDERS: PCP Family Medicine; Visit Provider Family Medicine | DX: Z20.822 Contact with and (suspected) exposure to COVID-19 (principal) | CPT/HCPCS: 87635 ==

== ENCOUNTER → 2021-08-24 17:41 | Outpatient (BNVA) | payer OTHER, SELFPAY | PROVIDERS: PCP Family Medicine; Visit Provider Family Medicine | DX: Z20.822 Contact with and (suspected) exposure to COVID-19 (principal) | CPT/HCPCS: 87801 ==

== ENCOUNTER → 2021-09-27 14:41 | Outpatient (BNVA) | payer OTHER, SELFPAY | PROVIDERS: PCP Family Medicine; Visit Provider Internal Medicine Rheumatology | DX: Z87.891 Personal history of nicotine dependence (principal); M15.9 Polyosteoarthritis, unspecified; Z79.899 Other long term (current) drug therapy | CPT/HCPCS: 99213 ==

== ENCOUNTER → 2021-11-15 10:06 | Outpatient (BNVA) | payer OTHER, SELFPAY | PROVIDERS: PCP Family Medicine; Visit Provider Family Medicine | DX: I10 Essential (primary) hypertension (principal) | CPT/HCPCS: 80048 ==

== ENCOUNTER → 2023-03-01 09:42 | Outpatient (BNVA) | payer BC, SELFPAY | PROVIDERS: PCP Family Medicine; Visit Provider Emergency Medicine | DX: M10.071 Idiopathic gout, right ankle and foot (principal) | CPT/HCPCS: 80048; 84550 ==

== ENCOUNTER → 2023-03-24 09:46 | Outpatient (BNVA) | payer BC, SELFPAY | PROVIDERS: PCP Family Medicine; Visit Provider Emergency Medicine | DX: M10.071 Idiopathic gout, right ankle and foot (principal); N28.9 Disorder of kidney and ureter, unspecified | CPT/HCPCS: 80048; 84550 ==

== ENCOUNTER → 2023-04-17 13:15 | Outpatient (BNVA) | payer BC, SELFPAY | PROVIDERS: PCP Family Medicine; Visit Provider Nurse Practitioner Family | DX: R68.89 Other general symptoms and signs (principal); J11.1 Influenza due to unidentified influenza virus with other respiratory manifestations | CPT/HCPCS: 87400; 87426 ==

== ENCOUNTER → 2023-08-01 11:05 | Outpatient (BNVA) | payer OTHER, SELFPAY | PROVIDERS: PCP Family Medicine; Visit Provider Surgery | DX: Z12.11 Encounter for screening for malignant neoplasm of colon (principal) | CPT/HCPCS: 99203; 99214 ==

== ENCOUNTER 2023-10-26 08:00 | Day surgery (SDC) | payer OTHER, SELFPAY ==
[2023-10-26 08:13] VITALS: BP 144/107; PULSE 87; RESP 18; TEMP 36.3; O2SAT 94; BMI 31.6
--- NOTE | 2023-10-26 08:18 | W.PM.OPSFHP ---
Same Day Surgery H&P Indication for Procedure/HPI DATE OF PROCEDURE: October 26, 2023 CHIEF COMPLAINT/INDICATIONFOR SURGICAL PROCEDURE: need for screening colonoscopy PREOP DIAGNOSIS: need for screening colonoscopy PLANNED PROCEDURE: Operation Date: 10/26/23 09:00 Proposed Procedures p 06478 colon G0121 screen colon A risk Z12.11(Not Applicable) - Manfred Huerta MD Medications/Allergies* Allergies/Adverse Reactions Allergy/AdvReac Type Severity Reaction Status Date / Time latex Allergy skin Verified 10/20/23 15:16 problems Pertinent History/Comorbid Conditions* Medical History (Updated 03/24/23 @ 09:54 by TAMRA Guevara) Gout Obesity (BMI 30-39.9) Insomnia Chronic pain Osteoarthritis, generalized Inflammatory arthritis MDD (major depressive disorder) GERD (gastroesophageal reflux disease) Post traumatic stress disorder (PTSD) Depression Anxiety Elevated cholesterol Hypertension Expressive aphasia Surgical History (Updated 07/29/21 @ 09:41 by Ariel Mcghee MD) Status post laparoscopic cholecystectomy (07/15/21) H/O esophagogastroduodenoscopy H/O knee surgery H/O hand surgery Family History (Updated 01/20/21 @ 09:22 by Emerald Wilson LPN) Rheumatoid arthritis Diabetes CAD (coronary artery disease) Chronic kidney disease (CKD) Cancer Hypertension Stroke Denies family history of Lupus Hyperlipidemia Lung disease Social History Smoking and tobacco/nicotine status: former use of tobacco/nicotine Quit status (tobacco/nicotine): has quit using Year quit tobacco: 07/2020 Second hand smoke exposure: Yes Alcohol intake: current Alcohol intake frequency: 0-2 Drinks per Day Substance/Drug Use: never Do you think of yourself as: Straight/Heterosexual Current gender identity: Male Pertinent Exam Findings alert, oriented x 3, clear to auscultation bilaterally and regular rate & rhythm Recommendations Surgery/Procedure today Coding Level of Care Code Acute Code for Chg Fwd
[2023-10-26] MEDS: sodium chloride 0.9% 1,000 ML 30 ML IV (08:20)
--- NOTE | 2023-10-26 08:25 | ANES.PREANE2 ---
Pre-Anesthetic Assessment Height/Weight: Height 1.83 m Weight 105.687 kg Temp Pulse Resp BP Pulse Ox O2 Del Method 97.3 F L 87 18 144/107 94 Room Air 10/26/23 08:13 10/26/23 08:13 10/26/23 08:13 10/26/23 08:13 10/26/23 08:13 10/26/23 08:13 Preop Diagnosis: need for screening colonoscopy Operation Date: 10/26/23 09:00 Proposed Procedures p 35480 colon G0121 screen colon A risk Z12.11(Not Applicable) - Manfred Huerta MD Familial anesthetic complications: None Was Beta Blanco taken within 24 hours: N/A Was Clonidine taken within 24 hours: N/A Last intake: Intake Last Liquid Date 10/25/23 Last Liquid Time 23:00 Last Solid Date 10/24/23 Last Solid Time 19:30 Social Tobacco 3 pack(s) per day 30 pack years quit 3 years ago Exam alert, oriented x 3, clear to auscultation bilaterally and regular rate & rhythm Airway Submandibular: within normal limits Cervical ROM: within normal limits Mallampati: Class II Comments: Comments: Denies propblems History/ROS No significant history except as noted Pulmonary Asthma and Chronic Obstructive Pulmonary Disease CV/HEM Hypertension Hepatic None reported GI Gastroesophageal Reflux Disease controlled with medications Metabolic Hyperlipidemia Musc/skel Lower Back Pain and Osteoarthritis/DJD Neuropsych Anxiety Anesthetic Plan ASA status: 2 Anesthesia: Anesthesia Evaluation Risk of > 500 ml blood loss (7ml/kg in children): No Medications/Allergies Home Medications Medication Instructions Recorded Confirmed Last Taken Type albuterol sulfate 90 mcg/actuation 2 puff inhalation QID PRN 04/14/22 10/24/23 10/23/23 Rx aerosol inhaler (ProAir HFA) shortness of breath or wheezing 30 days #18 grams gabapentin 300 mg capsule 300 mg PO BID 90 days #180 caps 04/14/22 10/24/23 10/26/23 Rx methocarbamol 500 mg tablet 1,000 mg (2 x 500 mg) PO QID Pain 04/14/22 10/24/23 10/25/23 Rx 30 days #240 tabs metoprolol tartrate 50 mg tablet 50 mg PO Q12H 90 days #180 tabs 04/14/22 10/24/23 10/26/23 Rx tramadol 50 mg tablet 50 mg PO DAILY PRN take as needed 04/14/22 10/24/23 10/24/23 Rx for moderate to severe pain 30 days #30 tabs atorvastatin 20 mg tablet 20 mg PO DAILY 90 days #90 tabs 04/20/22 10/24/23 10/25/23 Rx lisinopril 40 mg tablet 40 mg PO DAILY 90 days #90 tabs 04/20/22 10/24/23 10/25/23 Rx pantoprazole 40 mg tablet,delayed 40 mg PO DAILY 90 days #90 tabs 04/20/22 10/24/23 10/25/23 Rx release prednisone 10 mg tablet 30 mg (3 x 10 mg) PO DAILY 5 days 03/01/23 10/24/23 10/25/23 Rx #15 tabs allopurinol 100 mg tablet 100 mg PO DAILY gout, elevted uric 03/29/23 10/24/23 10/25/23 Rx acid. #30 tabs clonazepam 0.5 mg tablet 0.25 mg (1/2 x 0.5 mg) PO TID PRN 06/05/23 10/24/23 10/26/23 Rx anxiety 30 days #45 tabs lamotrigine 200 mg tablet 200 mg PO DAILY 90 days #90 tabs 06/05/23 10/24/23 10/25/23 Rx eszopiclone 3 mg tablet 3 mg PO .qhs 30 days #30 tabs 08/21/23 10/24/23 10/25/23 Rx amoxicillin 875 mg tablet 875 mg PO BID #14 tabs 10/20/23 10/24/23 10/25/23 Rx prednisone 20 mg tablet 20 mg PO DAILY #6 tabs 10/20/23 10/24/23 10/25/23 Rx promethazine-DM 6.25 mg-15 mg/5 mL 7.5 ml PO Q6H PRN cough #200 mL 10/20/23 10/24/23 10/23/23 Rx oral syrup Allergies Allergy/AdvReac Type Severity Reaction Status Date / Time latex Allergy skin Verified 10/20/23 15:16 problems Current Medications Generic Name Dose Route Start Last Admin Trade Name Freq PRN Reason Stop Dose Admin Sodium Chloride 1,000 mls @ 30 mls/hr 10/26/23 08:15 10/26/23 08:20 Sodium Chloride 0.9% IV 10/27/23 08:14 30 mls/hr .Q24H DIYA Administration PFSH Anesthesia Medical History Gout Obesity (BMI 30-39.9) Insomnia Chronic pain Osteoarthritis, generalized Inflammatory arthritis MDD (major depressive disorder) GERD (gastroesophageal reflux disease) Post traumatic stress disorder (PTSD) Depression Anxiety Elevated cholesterol Hypertension Expressive aphasia Surgical History Status post laparoscopic cholecystectomy (07/15/21) H/O esophagogastroduodenoscopy H/O knee surgery H/O hand surgery Family History Other CAD (coronary artery disease) Cancer Chronic kidney disease (CKD) Diabetes Hypertension Rheumatoid arthritis Stroke Denies family history of Lupus Hyperlipidemia Lung disease Social History Smoking and tobacco/nicotine status: former use of tobacco/nicotine Quit status (tobacco/nicotine): has quit using Year quit tobacco: 07/2020 Second hand smoke exposure: Yes Alcohol intake: current Alcohol intake frequency: 0-2 Drinks per Day Substance/Drug Use: never Do you think of yourself as: Straight/Heterosexual Current gender identity: Male Data Anesthesia Cardiac Studies: Echocardiogram Ultrasound 08/13/20
[2023-10-26 09:30] VITALS: BP 130/85; PULSE 62; RESP 16; TEMP 36.2; O2SAT 92
[2023-10-26 09:40] VITALS: BP 119/78; PULSE 66; RESP 16; TEMP 36.2; O2SAT 95
--- NOTE | 2023-10-26 09:50 | ANE.PACU2 ---
Inpatient post-anesthesia follow up: Airway intact: Yes Vital signs: Temperature 97.2 F Pulse Rate 66 Respiratory Rate 16 Blood Pressure 119/78 Pulse Oximetry 95 Oxygen Delivery Me thod Room Air Oxygen Flow Rate Fraction of Inspir ed Oxygen Hydration adequate: Yes Nausea and vomiting: No Pain level: 1 Mental status: Baseline
== END 2023-10-26 09:53 | disposition home or self-care (01) ==
PROVIDERS: PCP Family Medicine; Visit Provider Surgery
PROC: 0DJD8ZZ Inspection of Lower Intestinal Tract, Via Natural or Artificial Opening Endoscopic (ICD-10-PCS; CPT 45378; principal; 2023-10-26 09:00)
DX: Z12.11 Encounter for screening for malignant neoplasm of colon (principal); D12.2 Benign neoplasm of ascending colon; E66.9 Obesity, unspecified; Z68.31 Body mass index [BMI] 31.0-31.9, adult; K21.9 Gastro-esophageal reflux disease without esophagitis; I10 Essential (primary) hypertension; Z87.891 Personal history of nicotine dependence; J44.9 Chronic obstructive pulmonary disease, unspecified; E78.5 Hyperlipidemia, unspecified; F41.9 Anxiety disorder, unspecified
CPT/HCPCS: 45380; 45385; 88305; J2704; J7030

== ENCOUNTER → 2023-11-08 08:51 | Outpatient (BNVA) | payer OTHER, SELFPAY | PROVIDERS: PCP Family Medicine; Visit Provider Surgery | DX: Z09 Encounter for follow-up examination after completed treatment for conditions other than malignant neoplasm (principal) | CPT/HCPCS: 99212 ==

== ENCOUNTER → 2023-12-28 11:17 | Outpatient (BNVA) | payer BC, SELFPAY | PROVIDERS: PCP Family Medicine; Visit Provider Emergency Medicine | DX: M10.071 Idiopathic gout, right ankle and foot (principal) | CPT/HCPCS: 80048; 84550 ==

== ENCOUNTER → 2024-01-19 14:25 | Outpatient (BNVA) | payer BC, SELFPAY | PROVIDERS: PCP Family Medicine; Visit Provider Nurse Practitioner | DX: M19.071 Primary osteoarthritis, right ankle and foot (principal); M79.671 Pain in right foot | CPT/HCPCS: 73630 ==

== ENCOUNTER 2024-07-08 06:00 | Outpatient (RCR) | payer OTHER, SELFPAY | END 2024-08-03 23:59 | disposition home or self-care (01) | LOC: MPT 06:00 | PROVIDERS: Visit Provider Family Medicine | DX: M25.561 Pain in right knee (principal) | CPT/HCPCS: 97110; 97140; 97161 ==

== ENCOUNTER 2024-08-04 06:00 | Outpatient (RCR) | payer OTHER, SELFPAY | END 2024-09-03 23:59 | disposition home or self-care (01) | LOC: MPT 06:00 | PROVIDERS: Visit Provider Family Medicine | DX: M25.561 Pain in right knee (principal) | CPT/HCPCS: 97110 ==

== ENCOUNTER 2024-09-04 06:00 | Outpatient (RCR) | payer OTHER, SELFPAY | END 2024-09-10 23:59 | disposition home or self-care (01) | LOC: MPT 06:00 | PROVIDERS: PCP Family Medicine; Visit Provider Family Medicine | DX: M25.561 Pain in right knee (principal) | CPT/HCPCS: 97110 ==

== ENCOUNTER → 2024-10-25 09:03 | Outpatient (BNVA) | payer BC, SELFPAY | PROVIDERS: Family Provider Family Medicine; PCP Nurse Practitioner; Visit Provider Nurse Practitioner | DX: I10 Essential (primary) hypertension (principal); E78.1 Pure hyperglyceridemia; R07.9 Chest pain, unspecified | CPT/HCPCS: 80053; 80061; 85379 ==

== ENCOUNTER → 2024-11-11 08:41 | Outpatient (BNVA) | payer BC, SELFPAY | PROVIDERS: Family Provider Family Medicine; PCP Nurse Practitioner; Referring Provider Nurse Practitioner; Visit Provider Nurse Practitioner | DX: R53.83 Other fatigue (principal) | CPT/HCPCS: 84402; 84403 ==

== ENCOUNTER 2024-11-18 08:38 | Outpatient (CLI) | payer OTHER, SELFPAY ==
[2024-11-18 08:39] VITALS: BMI 31.1
--- NOTE | 2024-11-18 08:40 | ECG_ITS ---
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 Interpretive Statements Lung unchanged pre/post procedure; Intraprocedure shortess of breath; Symptoms resoled by discharge PROCEDURE: At the baseline, the EKG revealed normal sinus rhythm with a normal ST Ts. The baseline heart was 60 bpm with a blood pressue of 101/73 mm of Hg Lexiscan was infused over a period of 20 seconds. A total of 0.4 milligrams of Lexiscan was infused. The stress phase was continued for a total of 5 minutes. Heart rate at the end of the stress phase was 89 bpm with a blood pressure 102/72 mm of Hg. The EKG at the peak infusion revealed no significant changes. Sestamibi was injected 20 seconds after the Lexiscan infusion. Heart rate at the end of the recovery phase was 84 bpm with a blood pressure of 100/63 mm of Hg. CONCLUSION: 1. No significant EKG changes with the LexiScan infusion 2. No LexiScan induced chest pain or cardiac arrhythmia 3. Normal blood pressure and heart rate response 4. Sestamibi/sestamibi perfusion scan pending; see separate report. Electronically Signed On 11-22-2024 16:49:28 CDT by Abraham Wilson M.D. [email or web address] [id number]
--- NOTE | 2024-11-18 08:59 | PC.NURSE ---
Patient states he took his metoprolol this morning and is unable to walk on treadmill due to right knee pain from old injury. Called Dr. Wilson and received verbal order to switch to lexiscan if patient HR is in 70s or above.
--- NOTE | 2024-11-18 10:05 | NMCV_ITS ---
NM lindsay perf SPECT r/s* [id number] Howard Briseno Age: 48 Gender: M : 1975 Exam Date: 11/18/2024 10:05 Ordering Phys: Abraham Wilson MD ([email or web address]) Technologist: DANDY Hampton Exam Location: [facility] Indications: cp STRESS TEST [facility] IMAGE PROTOCOL Rest/Stress 1 Lexiscan Day Radiopharmaceutical Dose (mCi) Administration Site Administered by Rest: Tc-99m 10 IV DANDY Hampton Sestamibi Stress:Tc-99m 32.4 IV DANDY Mancini Sestamibi Rest: 18-Nov-2024 60 Discovery 630 Stress: 18-Nov-2024 30 Discovery 630 0.4mg Lexiscan. Images obtained in supine and prone position. SPECT RESULTS Technical Quality: Good Raw Data Analysis: Normal Image Corrections: No attenuation or motion correction applied Summed Stress Score: 1 Summed Rest Score: 4 Summed Difference Score: 0 PERFUSION FINDINGS A small area of slightly decreased tracer uptake was noted in the mid inferolateral region. No significant reversibility was noted in this area. FUNCTIONAL RESULTS (calculated via Gated SPECT) Stress Image LV EF (%): 73 Stress EDV (mL):85 TID: 0.76 Stress ESV (mL):23 FUNCTIONAL FINDINGS: Segmental wall motion analysis revealing no gross wall motion abnormalities IMPRESSIONS 1. Myocardial perfusion imaging revealing a small area of persistent decreased tracer uptake in the mid inferolateral region suggestive of myocardial scarring versus attenuation artifact 2. Normal LV ejection fraction of 73%. 3. LV wall motion analysis revealing no gross wall motion abnormalities. 4. Normal LV volume Low probability for coronary ischemia, based on the above findings Dr Abraham Wilson MD FACC (Electronically Signed) Final Date: 18 November 2024 21:30 S
[2024-11-18] MEDS: regadenoson 0.4 Mg/5 ml Syringe IVP (11:12)
[2024-11-18 11:21] VITALS: BP 100/63; PULSE 84
== END 2024-11-18 08:39 | disposition home or self-care (01) ==
LOC: CDL 08:39
PROVIDERS: PCP Nurse Practitioner; Visit Provider Family Medicine
DX: R07.9 Chest pain, unspecified (principal); R93.1 Abnormal findings on diagnostic imaging of heart and coronary circulation
CPT/HCPCS: 78452; 93017; A9500; J2785

== ENCOUNTER 2024-11-18 09:12 | Emergency (ER) | payer OTHER, BC, SELFPAY ==
--- NOTE | 2024-11-18 09:17 | PC.PHAR ---
patient is [facility], sent fax at 563mm
--- NOTE | 2024-11-18 09:18 | ECG_ITS ---
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
--- NOTE | 2024-11-18 09:18 | CTR_ITS ---
PROCEDURE INFORMATION: Exam: CT Head Without Contrast Exam date and time: 11/18/2024 9:11 AM Age: 48 years old Clinical indication: Stroke-like symptoms; Generalized weakness; Additional info: Symptoms of acute stroke TECHNIQUE: Imaging protocol: Computed tomography of the head without contrast. Radiation optimization: All CT scans at this facility use at least one of these dose optimization techniques: automated exposure control; mA and/or kV adjustment per patient size (includes targeted exams where dose is matched to clinical indication); or iterative reconstruction. Other technique: STROKE PROTOCOL was implemented. COMPARISON: MR head wo/w con [id number] 08/13/2020 11:54 AM RADIATION DOSE METRICS: Total DLP (mGy-cm): 1139.79 FINDINGS: Brain: Normal. No hemorrhage. Unremarkable white matter. No mass effect. Ventricles: No hydrocephalus or evidence of increased intracranial pressure. Paranasal sinuses: Visualized sinuses are unremarkable. No fluid levels. Mastoid air cells: Visualized mastoid air cells are well aerated. Bones: Unremarkable. No acute fracture. Soft tissues: Unremarkable. CT/CT head thrombolytic [id number] IMPRESSION: No acute intracranial abnormality identified. ASSESSMENT: ASPECTS ([place] Stroke Program Early CT Score) is 10.
[2024-11-18 09:20] VITALS: BP 93/60; PULSE 63; RESP 11; TEMP 36.4; O2SAT 96
--- NOTE | 2024-11-18 09:28 | W.ED.NEUROSD ---
HPI - Neuro Symptoms/Deficit General: Chief Complaint: Neuro Symptoms/Deficit Stated Complaint: stroke alert Time Seen by Provider: 11/18/24 09:15 History of Present Illness: 48-year-old male was a stroke alert from the [facility]. Per the nursing staff there they did place an IV shortly after that he got diaphoretic very diaphoretic was nonresponsive for a time and weak he was a concern he may have had a stroke but the time I seen the patient responded to rapid response he had no focal neurologic deficits we did complete the workup for CVA. Associated symptoms: Deny chest pain Related Data Home Medications ?Medication ?Instructions ?Recorded ?Confirmed aspirin 81 mg tablet,delayed 81 mg PO DAILY 10/25/24 11/18/24 release (Adult Aspirin Regimen) atorvastatin 40 mg tablet 40 mg PO DAILY 11/18/24 11/18/24 famotidine 20 mg tablet 20 mg PO DAILY 11/18/24 11/18/24 fluticasone 100 mcg-salmeterol 50 1 ea inhalation BID 11/18/24 11/18/24 mcg/dose blistr powdr for inhalation (Michael Flores) Previous Rx's ?Medication ?Instructions ?Recorded albuterol sulfate 90 mcg/actuation 2 puff inhalation QID PRN 04/14/22 aerosol inhaler (ProAir HFA) shortness of breath or wheezing 30 days #18 grams metoprolol tartrate 50 mg tablet 50 mg PO Q12H 90 days #180 tabs 04/14/22 tramadol 50 mg tablet 50 mg PO DAILY PRN take as needed 04/14/22 for moderate to severe pain 30 days #30 tabs lisinopril 40 mg tablet 40 mg PO DAILY 90 days #90 tabs 04/20/22 pantoprazole 40 mg tablet,delayed 40 mg PO DAILY 90 days #90 tabs 04/20/22 release allopurinol 200 mg tablet 200 mg PO DAILY gout, elevted uric 12/28/23 acid. #90 tabs lamotrigine 200 mg tablet 200 mg PO DAILY 90 days #90 tabs 05/10/24 hydrochlorothiazide 12.5 mg tablet 12.5 mg PO DAILY #30 tabs 10/10/24 clonazepam 0.5 mg tablet 0.5 mg PO TID PRN anxiety 30 days 11/11/24 #75 tabs eszopiclone 3 mg tablet 3 mg PO .qhs 30 days #30 tabs 11/11/24 Allergies Allergy/AdvReac Type Severity Reaction Status Date / Time latex Allergy skin Verified 10/25/24 08:39 problems Review of Systems Const: Denies: fever(s) or chills Card: Denies: chest pain Resp: Denies: dyspnea GI: Denies: abdominal pain : Denies: dysuria, urinary frequency or urinary urgency Musc: Denies: neck pain or back pain Skin/Breast: Denies: rash PFSH ED PFSH: Medical History Gout Obesity (BMI 30-39.9) Insomnia Chronic pain Osteoarthritis, generalized Inflammatory arthritis MDD (major depressive disorder) GERD (gastroesophageal reflux disease) Post traumatic stress disorder (PTSD) Depression Anxiety Elevated cholesterol Hypertension Expressive aphasia Surgical History Status post laparoscopic cholecystectomy (07/15/21) H/O esophagogastroduodenoscopy H/O knee surgery H/O hand surgery Family History Other CAD (coronary artery disease) Cancer Chronic kidney disease (CKD) Diabetes Hypertension Rheumatoid arthritis Stroke Denies family history of Lupus Hyperlipidemia Lung disease Social History Smoking and tobacco/nicotine status: never used tobacco/nicotine Quit status (tobacco/nicotine): has quit using Year quit tobacco: 07/2020 Second hand smoke exposure: Yes Alcohol intake: current Alcohol intake frequency: 0-2 Drinks per Day Substance/Drug Use: never Do you think of yourself as: Straight/Heterosexual Current gender identity: Male NIH stroke score NIHSS: Level Of Consciousness - 1a: 0 Level Of Consciousness Questions - 1b: Both Correct Level Of Consciousness Commands - 1c: Both Correct Best Gaze - 2: Normal Visual [place] - 3: No Visual Loss Facial Palsy - 4: Normal Motor Arm Right - 5: No Drift Motor Arm Left - 5: No Drift Motor Leg Right - 6: No Drift Motor Leg Left - 6: No Drift Limb Ataxia - 7: Absent Sensory - 8: Normal Best Language - 9: No Aphasia Dysarthia - 10: Normal Extinction And Inattention - 11: 0 Score: Total Score: 0 Physical Exam Const: COMMON NORMALS: no acute distress GENERAL APPEARANCE: cooperative and comfortable ORIENTATION/CONSCIOUSNESS: Yes awake, Yes oriented to person, Yes oriented to place and Yes oriented to time HENMT: COMMON NORMALS: normocephalic, atraumatic and hearing grossly normal bilaterally HEAD & SCALP: normocephalic and atraumatic Resp: COMMON NORMALS: normal respiratory effort, No retractions, No use of accessory muscles and clear to auscultation bilaterally AUSCULTATION: clear to auscultation bilaterally Cardio: COMMON NORMALS: regular rate, regular rhythm and No murmurs present (Cardio) RATE: regular rate RHYTHM: regular rhythm GI: COMMON NORMALS: Soft to palpation and No hepatosplenomegaly present AUSCULTATION: Yes normoactive bowel sounds PALPATION: Yes Soft to palpation, No Tenderness to palpation present (GI), No Guarding due to palpation present (GI) and Yes No hepatosplenomegaly present Extremity: COMMON NORMALS: normal to inspection, capillary refill normal, no clubbing, cyanosis or edema, no calf tenderness and no pedal edema Neuro: SENSORIUM/ORIENTATION: Yes oriented to person, Yes oriented to place and Yes oriented to time Skin: COMMON NORMALS: no rashes or lesions noted GENERAL SKIN EXAM: no rashes or lesions noted Course Vital Signs: Vital signs: Vital Signs Temperature 97.5 F L 11/18/24 09:20 Pulse Rate 63 11/18/24 09:20 Respiratory Rate 11 L 11/18/24 09:20 Blood Pressure 93/60 11/18/24 09:20 Pulse Oximetry 96 11/18/24 09:20 Oxygen Delivery Me thod Room Air 11/18/24 09:20 MDM - Neuro Symptoms/Deficit Medical Decision Making CT head negative. Patient has no focal findings I think he just had a vasovagal reaction to the IV placement. He is completely intact. He has no ataxia finger-nose heel that she had are all normal. Patient return to the [facility] for completion of his cardiac stress testing Medical Records I reviewed the patient's medical records. Lab Data I reviewed the patient's lab results. 11/18/24 09:23 11/18/24 09:[address] 11/18/24 09:18 IMPRESSION: No acute intracranial abnormality identified. ASSESSMENT: ASPECTS ([place] Stroke Program Early CT Score) is 10. ADDENDUM: 11/18/24929 THIS REPORT CONTAINS FINDINGS THAT MAY BE CRITICAL TO PATIENT CARE. The findings were verbally communicated by me to DR. NORRIS SIMMONS via telephone conference at 9:28 AM CDT on 11/18/2024. The findings were acknowledged and understood. Laboratory Results WBC 7.28 10^3/uL (3.29-11.43) 11/18/24 09: RBC 5.10 10^6/uL (3.85-5.65) 11/18/24 09:23 Hgb 15.40 g/dL (11.27-16.99) 11/18/24 09: Hct 45.0 % (37-53) 11/18/24 09: MCV 88.2 fl (82-101) 11/18/24 09: MCH 30.2 pg (27-33) 11/18/24 09: MCHC 34.2 g/dL (30-55) 11/18/24 09: RDW 11.6 % (12.1-15.1) L 11/18/24 09:23 Plt Count 303 10^3/cmm (157-399) 11/18/24 09: MPV 8.9 fL (7.4-10.4) 11/18/24 09: Neut % (Auto) 54.3 % 11/18/24 09: Lymph % (Auto) 31.7 % 11/18/24 09:23 [place] % (Auto) 9.6 % 11/18/24 09: Eos % (Auto) 2.9 % 11/18/24 09: Baso % (Auto) 0.8 % 11/18/24 09:23 Neut # (Auto) 3.95 10^3/uL (1.8-7.7) 11/18/24 09: Lymph # (Auto) 2.3 10^3/uL (0.8-4.8) 11/18/24 09:23 [place] # (Auto) 0.7 10^3/uL (0.2-0.9) 11/18/24 09:23 Eos # (Auto) 0.2 10^3/uL (0.0-0.8) 11/18/24 09:23 Baso # (Auto) 0.1 10^3/uL (0.0-0.1) 11/18/24 09:23 Nucleated RBC % (auto) 0 % 11/18/24 09:23 Nucleated RBCs # 0.0 /100WBC 11/18/24 09:23 PT 13.00 SECONDS (12.1-14.9) 11/18/24 09:23 INR 0.92 (0.8-1.2) 11/18/24 09:23 APTT 22.5 SECONDS (23.9-36.7) L 11/18/24 09:23 Sodium 137 mmol/L (136-145) 11/18/24 09:23 Potassium 3.9 mmol/L (3.5-5.1) 11/18/24 09:23 Chloride 103 mmol/L (98-107) 11/18/24 09:23 Carbon Dioxide 24 mmol/L (22-29) 11/18/24 09:23 Anion Gap 13.9 (5-19) 11/18/24 09:23 BUN 15 mg/dL (6-20) 11/18/24 09:23 Creatinine 1.5 mg/dL (0.7-1.2) H 11/18/24 09:23 GFR Calculation 50.2 mL/min (90-130) L 11/18/24 09:23 Glucose 117 mg/dL (65-115) H 11/18/24 09:23 POC Glucose 110 mg/dL (70-110) 11/18/24 09:39 Calculated Osmolality 286 mOsm/kg (285-295) 11/18/24 09:23 Calcium 9.8 mg/dL (8.5-10.5) 11/18/24 09:23 Total Bilirubin 0.4 mg/dL (0.15-1.2) 11/18/24 09:23 AST 20 U/L (0-40) 11/18/24 09:23 ALT 35 U/L (0-41) 11/18/24 09:23 Alkaline Phosphatase 58 U/L (40-130) 11/18/24 09:23 Total Protein 6.7 g/dL (6.6-8.7) 11/18/24 09:23 Albumin 4.5 g/dL (3.5-5.2) 11/18/24 09:23 Globulin 2.2 g/dL (1.3-4.6) 11/18/24 09:23 Urine Color Yellow (Yellow) 11/18/24 09:50 Urine Appearance Clear (CLEAR) 11/18/24 09:50 Urine pH 5.5 (5-7) 11/18/24 09:50 Ur Specific [place] 1.009 (1.005-1.030) 11/18/24 09:50 Urine Protein Negative (Negative) 11/18/24 09:50 Urine Glucose (UA) Negative (Normal) 11/18/24 09:50 Urine Ketones Negative (Negative) 11/18/24 09:50 Urine Blood Negative (Negative) 11/18/24 09:50 Urine Nitrate Negative (Negative) 11/18/24 09:50 Urine Bilirubin Negative (Negative) 11/18/24 09:50 Urine Urobilinogen 0.2 mg/dL (Negative) 11/18/24 09:50 Ur Leukocyte Esterase Negative (Negative) 11/18/24 09:50 Urine RBC 0-2 /hpf (0-2) 11/18/24 09:50 Urine WBC 0-5 /hpf (0-5) 11/18/24 09:50 Ur Squamous Epith Cells 0-5 /hpf (0-5) 11/18/24 09:50 Amorphous Sediment Not Reportable 11/18/24 09:50 Urine Bacteria None seen /hpf (NONE) 11/18/24 09:50 Hyaline Casts 16.12 /lpf 11/18/24 09:50 Urine Opiates Screen Negative ng/mL (Negative) 11/18/24 09:50 Ur Barbiturates Screen Negative ng/mL (Negative) 11/18/24 09:50 Ur Phencyclidine Scrn Negative ng/mL (Negative) 11/18/24 09:50 Ur Amphetamines Screen Negative ng/mL (Negative) 11/18/24 09:50 U Benzodiazepines Scrn Negative ng/mL (Negative) 11/18/24 09:50 Urine Cocaine Screen Negative ng/mL (Negative) 11/18/24 09:50 U Marijuana (THC) Screen Negative ng/mL (Negative) 11/18/24 09:50 All radiology interpretation(s) finalized by discharge Discharge Plan Discharge Patient Disposition: Home Clinical Impression: Vaso-vagal reaction Condition: Stable Prescriptions: No Action allopurinol 200 mg tablet 200 mg PO DAILY Qty: 90 1RF hydrochlorothiazide 12.5 mg tablet 12.5 mg PO DAILY Qty: 30 2RF lamotrigine 200 mg tablet 200 mg PO DAILY 90 Days Qty: 90 3RF aspirin [Adult Aspirin Regimen] 81 mg tablet,delayed release (DR/EC) 81 mg PO DAILY tramadol 50 mg tablet 50 mg PO DAILY PRN (Reason: take as needed for moderate to severe pain) 30 Days Qty: 30 0RF metoprolol tartrate 50 mg tablet 50 mg PO Q12H 90 Days Qty: 180 1RF albuterol sulfate [ProAir HFA] 90 mcg/actuation HFA aerosol inhaler 2 puff inhalation QID PRN (Reason: shortness of breath or wheezing) 30 Days Qty: 18 5RF lisinopril 40 mg tablet 40 mg PO DAILY 90 Days Qty: 90 1RF pantoprazole 40 mg tablet,delayed release (DR/EC) 40 mg PO DAILY 90 Days Qty: 90 1RF eszopiclone 3 mg tablet 3 mg PO .qhs 30 Days Qty: 30 5RF clonazepam 0.5 mg tablet 0.5 mg PO TID PRN (Reason: anxiety) 30 Days Qty: 75 5RF atorvastatin 40 mg tablet 40 mg PO DAILY famotidine 20 mg tablet 20 mg PO DAILY fluticasone propion-salmeterol [Wixela Inhub] 100-50 mcg/dose blister with device 1 ea INHALATION BID Discharge Orders: Discharge ED (Routine); Ordered 11/18/24 Ordered By: Norris Simmons Referrals: Bina Mitchell FNP [Primary Care Provider] - Discharge Diet: Usual diet Discharge Activity: Resume usual activity Patient Instructions: Opioid Safety, Pain Management Activity Restrictions/Additional Instructions: Thank you for choosing [facility] for your healthcare needs today. It is very important that you follow up as instructed or that you return to the Emergency Department should you have concerns or if your condition changes or worsens in any way. You were seen in the emergency room after a vasovagal episode your stroke score and CT of your head were negative. You were discharged from the emergency room back to cardiac diagnostic lab to complete your stress testing for today. Print Language: Indonesian Coding Level of Care Code ED Resident Doctor for Marlin Alfonso
[2024-11-18] MEDS: sodium chloride 0.9% 500 ML 999 ML IV (09:31)
[2024-11-18 09:32] LABS: Basophils # 0.1 10^3/uL (0.0-0.1); Basophils % 0.8 %; Eosinophils # 0.2 10^3/uL (0.0-0.8); Eosinophils % 2.9 %; Lymphocytes # 2.3 10^3/uL (0.8-4.8); Lymphocytes % 31.7 %; Mean Corpuscular HGB Conc 34.2 g/dL (30-55); Mean Corpuscular Hemoglobin 30.2 pg (27-33); Mean Corpuscular Volume 88.2 fl (82-101); Mean Platelet Volume 8.9 fL (7.4-10.4); Monocytes # 0.7 10^3/uL (0.2-0.9); Monocytes % 9.6 %; Neutrophils # 3.95 10^3/uL (1.8-7.7); Neutrophils % 54.3 %; Nucleated Red Blood Cells % 0 %; Platelet Count 303 10^3/cmm (157-399); Red Cell Distribution Width 11.6 % (12.1-15.1); White Blood Count 7.28 10^3/uL (3.29-11.43)
[2024-11-18 09:41] LABS: Glucose Point of Care 110 mg/dL (70-110)
[2024-11-18 09:43] LABS: INR 0.92 (0.8-1.2)
[2024-11-18 09:44] LABS: Partial Thromboplastin Time 22.5 SECONDS (23.9-36.7)
[2024-11-18 09:48] LABS: Alanine Aminotransferase 35 U/L (0-41); Albumin Level 4.5 g/dL (3.5-5.2); Alkaline Phosphatase 58 U/L (40-130); Anion Gap 13.9 (5-19); Aspartate Amino Transferase 20 U/L (0-40); Blood Urea Nitrogen 15 mg/dL (6-20); Calcium 9.8 mg/dL (8.5-10.5); Carbon Dioxide 24 mmol/L (22-29); Chloride 103 mmol/L (98-107); Globulin 2.2 g/dL (1.3-4.6); Glomerular Filtration Rate 50.2 mL/min (90-130); Glucose 117 mg/dL (65-115); Osmolality Calculated 286 mOsm/kg (285-295); Potassium 3.9 mmol/L (3.5-5.1); Sodium 137 mmol/L (136-145); Total Bilirubin 0.4 mg/dL (0.15-1.2); Total Protein 6.7 g/dL (6.6-8.7)
[2024-11-18 10:13] LABS: Bilirubin Urine Negative (Negative); Blood Urine Negative (Negative); Glucose Urine UA Negative (Normal); Ketones Urine Negative (Negative); Leukocyte Esterase Urine Negative (Negative); Nitrate Urine Negative (Negative); Protein Urine Negative (Negative); Specific Gravity, Urine 1.009 (1.005-1.030); Urine Appearance Clear (CLEAR); Urine Color Yellow (Yellow); Urobilinogen Urine 0.2 mg/dL (Negative); pH Urine 5.5 (5-7)
--- NOTE | 2024-11-18 10:13 | PC.NURSE ---
PT TAKEN TO COMPO CASTER [id number]
[2024-11-18 10:18] LABS: Add Urine Microscopic? YES; Bacteria Urine None Seen /hpf; Hyaline Casts Urine 16.12 /lpf; RBC Urine 0-2 /hpf (0-2); Squamous Epithelial Cell Urine 0-5 /hpf (0-5); WBC Urine 0-5 /hpf (0-5)
[2024-11-18 10:19] LABS: Amphetamines Screen Urine Negative (Negative); Barbiturates Screen Urine Negative (Negative); Benzodiazepines Screen Urine Negative (Negative); Cocaine Screen Urine Negative (Negative); Opiate Screen Urine Negative (Negative); PCP Screen Urine Negative (Negative); THC Screen Urine Negative (Negative)
== END 2024-11-18 12:59 | disposition home or self-care (01) ==
PROVIDERS: Emergency Provider Family Medicine; PCP Nurse Practitioner
DX: R55 Syncope and collapse (principal); Z79.82 Long term (current) use of aspirin; Z87.891 Personal history of nicotine dependence; I10 Essential (primary) hypertension
CPT/HCPCS: 36415; 36416; 70450; 80053; 80306; 81001; 82962; 85025; 85610; 85730; 93005; 99284; J7040

== ENCOUNTER → 2024-11-25 10:11 | Outpatient (BNVA) | payer BC, SELFPAY | PROVIDERS: PCP Nurse Practitioner; Visit Provider Nurse Practitioner | DX: R53.83 Other fatigue (principal) | CPT/HCPCS: 84402; 84403 ==

== ENCOUNTER → 2025-02-06 10:16 | Outpatient (BNVA) | payer BC, SELFPAY | PROVIDERS: PCP Nurse Practitioner; Visit Provider Nurse Practitioner | DX: E34.9 Endocrine disorder, unspecified (principal) | CPT/HCPCS: 80053; 84402; 84403; 85025 ==

== ENCOUNTER → 2025-05-06 08:39 | Outpatient (BNVA) | payer BC, SELFPAY | PROVIDERS: PCP Nurse Practitioner; Referring Provider Nurse Practitioner; Visit Provider Nurse Practitioner | DX: E34.9 Endocrine disorder, unspecified (principal); Z79.899 Other long term (current) drug therapy | CPT/HCPCS: 84402; 84403 ==

== ENCOUNTER → 2025-06-06 09:47 | Outpatient (BNVA) | payer BC, SELFPAY | PROVIDERS: PCP Nurse Practitioner; Referring Provider Nurse Practitioner; Visit Provider Nurse Practitioner | DX: E34.9 Endocrine disorder, unspecified (principal) | CPT/HCPCS: 84402; 84403 ==

== ENCOUNTER → 2025-06-16 10:16 | Outpatient (BNVA) | payer OTHER, SELFPAY | PROVIDERS: PCP Nurse Practitioner; Visit Provider Orthopaedic Surgery | DX: M25.561 Pain in right knee (principal); G89.29 Other chronic pain; M23.8X1 Other internal derangements of right knee | CPT/HCPCS: 99204 ==

== ENCOUNTER 2025-06-30 14:21 | Outpatient (CLI) | payer BC, SELFPAY ==
--- NOTE | 2025-06-30 14:30 | MR_ITS ---
WS: [id number] MRI RIGHT KNEE NONCONTRAST TECHNIQUE: Axial PD, coronal PD fat sat, coronal PD, sagittal PD, and sagittal PD fat-sat images obtained. CLINICAL INFORMATION: Right knee pain COMPARISON: None. FINDINGS: Distal quadriceps and patella tendons are intact. ACL and PCL are intact. Medial and lateral collateral ligaments are intact. Normal popliteal fossa. Mild to moderate tricompartmental arthritis worse in the medial joint compartment. Grade II chondromalacia patella. Medial and lateral patellar retinacula appear intact. Soft tissue edema along the joint line. Normal lateral meniscus. Mild thinning of the medial meniscus. No acute appearing meniscal tears. MR/MR knee RT wo con* [id number] IMPRESSION: 1. Mild to moderate tricompartmental arthritis worse in the medial joint mame rtment. 2. ACL and PCL appear intact. 3. Mild chronic thinning of the medial meniscus. No acute appearing meniscal t ears. 4. Grade II chondromalacia patella. 5. Medial and lateral collateral ligaments appear intact. 6. No other acute findings. Outbridge grading: grade II: blister-like swelling/fraying of articular cartila ge extending to surface
== END 2025-06-30 14:22 | disposition home or self-care (01) ==
LOC: RAD 14:21
PROVIDERS: PCP Nurse Practitioner; Visit Provider Orthopaedic Surgery
DX: M25.561 Pain in right knee (principal)
CPT/HCPCS: 73721

== ENCOUNTER → 2025-07-02 08:46 | Outpatient (BNVA) | payer BC, SELFPAY | PROVIDERS: PCP Nurse Practitioner; Referring Provider Nurse Practitioner; Visit Provider Nurse Practitioner | DX: Z01.89 Encounter for other specified special examinations (principal); E34.9 Endocrine disorder, unspecified | CPT/HCPCS: 82670; 83002; 84146; 84403; 85025 ==